=== PATIENT | male | born 1975 | race Caucasian/White ===

== ENCOUNTER 2017-07-14 11:18 | Inpatient (IN) ==
[2017-07-14] MEDS ORDERED: ONDANSETRON 4 MG/2 ML VIAL IV PRN (12:07)
[2017-07-14] MEDS ORDERED: ACETAMINOPHEN 325 MG TABLET PO PRN (12:07)
[2017-07-14] MEDS ORDERED: NICOTINE 21 MG PATCH TOPICAL ONE (12:36)
[2017-07-14] MEDS: 0.9 % SODIUM CHLORIDE 10 ML SYRINGE IV SCH ×2 (12:44→22:52)
--- NOTE | 2017-07-14 12:55 | Nephrology Consult Note ---
History of Present Illness - Reason for Consult Patient information: Note initiated : 07/14/17 at 12:52 pm Patient: Constantine Rivera 42 y/o M admitted on 07/14/17 for Accute Kidney Injury- Hyperkalemia. Chief Complaint: Abnormal labs (high potassium). Consult date: 07/14/17 acute renal failure, chronic renal failure, hyperkalemia, metabolic acidosis Requesting physician: Darin Olson - Chief Complaint High potassium - History of Present Illness Constantine Rivera is a [id number] male with chronic kidney disease stage 3, persistent non-nephrotic range proteinuria, benign prostatic hyperplasia, bilateral hydronephrosis, left ureteral reflux s/p cystoscopy, voiding cystourethrogram, bilateral stent placement and transurethral incision of the prostate on 01/27/17 and cystoscopy and bilateral stent removal on 06/10/17, history of metabolic acidosis and hyperkalemia, history of hyperuricemia and gout, vitamin D deficiency, secondary hyperparathyroidism, chronic anemia due to renal failure, [facility] up and referred to [facility] for direct admission for management of acute kidney injury with hyperkalemia and metabolic acidosis. Labs on 07/14/17: Serum creatinine 4.4, CKD-EPI GFR 16 ml/min, K 6.1, CO2 16, calcium 8.9. Labs on 07/13/17: Serum creatinine 4.1, CKD-EPI GFR 16 ml/min, K 5.6, CO2 21, calcium 9.1. Labs on 06/10/17: Urinalysis yellow, cloudy, pH 6.5, SG <1.005, protein low, occult blood large, random urine protein/creatinine ratio 300 mg/g creatinine. Labs on 03/10/17: Serum creatinine 2.3, CKD-EPI GFR 32 ml/min, K 4.9, CO2 24, calcium 9.4. Labs on 01/31/17: Serum creatinine 2.5, CKD-EPI GFR 31 ml/min, Hb 9.5. Labs on 10/17/16: Random urine microalbumin/creatinine ratio 100.4 mg/g creatinine. Renal US (01/08/17): Severe hydronephrosis bilaterally. Atrophic renal cortex bilaterally. Thickened bladder wall with trabeculation. Serum creatinine was 2.0-3.1 in 2017. He does not use NSAIDs. He takes Sodium Bicarbonate 650 mg twice daily, Flomax 0.4 mg daily among other medications. He has no edema. He does not have urinary symptoms. Review of Systems Constitutional: weakness, no headache(s) Nose, mouth and throat: no epistaxis, no nasal congestion Cardiovascular: no chest pain, no palpatations Respiratory: no cough, no dyspnea Gastrointestinal: no abdominal pain, no nausea Genitourinary: no dysuria, no hematuria Musculoskeletal: no back pain, no neck pain Integumentary: no lesions, no pruritus Neurological: no focal weakness, no syncope Psychiatric: anxiety, no depression Endocrine: no cold intolerance, no heat intolerance Hematologic/Lymphatic: no easy bleeding, no easy bruising Allergic/Immunologic: no tongue swelling, no uticaria Past History Past medical history: Medical History (Last Reviewed 07/14/17 @ 10:10 by Ellyn Houston RN) Acute kidney injury (Acute) Anemia in stage 3 chronic kidney disease (Chronic) Vitamin D deficiency (Chronic) Secondary hyperparathyroidism of renal origin (Chronic) Persistent proteinuria (Chronic) Hyperkalemia, diminished renal excretion (Resolved) Psychiatric illness (Chronic) Kidney disease (Chronic) Chronic obstructive lung disease (Chronic) Chronic kidney disease, stage 3 (Chronic) Chronic anxiety (Chronic) Depressive disorder (Chronic) Bipolar disorder (Chronic) Congenital stricture of urethra (Chronic) Past surgical history: Past Surgical History (Last Reviewed 07/14/17 @ 10:10 by Ellyn Houston RN) No pertinent past surgical history (Chronic) Past family history: Family History (Last Reviewed 07/14/17 @ 10:10 by Ellyn Houston RN) Other No pertinent family history Past social history: Lives in an assisted living facility. Smokes cigarettes. Medications and Allergies Home Medications Medication Instructions Recorded Confirmed Type citalopram 40 mg tablet 40 mg PO QDAY 10/13/16 07/14/17 History lorazepam 2 mg tablet 1 mg PO BID 10/13/16 07/14/17 History salmeterol 50 mcg/dose blister 1 inh INHALATION BID 10/13/16 07/14/17 History powder for inhalation albuterol sulfate HFA 90 2 puff INHALATION BID g 10/14/16 07/14/17 History mcg/actuation aerosol inhaler olanzapine 10 mg tablet See Label Instructions .ROUTE 10/14/16 07/14/17 History .COMPLEX gabapentin 100 mg capsule 100 mg PO BID@08,1200 01/12/17 07/14/17 History tamsulosin 0.4 mg capsule 0.4 mg PO QDAY 03/16/17 07/14/17 History risperidone 0.5 mg tablet 0.5 mg PO BID tab 06/10/17 07/14/17 History Gabapentin [Neurontin] 200 mg PO HS 07/14/17 07/14/17 History Vitamin D3 1,000 unit PO DAILY 07/14/17 07/14/17 History ciprofloxacin 500 mg tablet 500 mg PO BID tab 07/14/17 07/14/17 History Allergies Allergy/AdvReac Type Severity Reaction Status Date / Time No Known Drug Allergies Allergy Verified 07/14/17 10:43 Exam - Vital Signs Vital signs: Temp Pulse Resp BP Pulse Ox 98.5 F 80 16 127/79 97 07/14/17 11:51 07/14/17 11:51 07/14/17 11:51 07/14/17 11:51 07/14/17 11:51 - General Appearance General appearance: appears started age EENT: mucous membranes moist Neck: supple Respiratory: clear Cardiology: normal S1, normal S2 Gastrointestinal: no tenderness Integumentary: no rash, warm and dry Neurologic: no focal deficit, alert and oriented x3 Musculoskeletal: no erythema, no cyanosis Psychiatric: mood/affect appropriate, cooperative Assessment and Plan (1) Acute kidney injury Associated with obstructive nephropathy with bilateral hydronephrosis. Dr Schmitt planning bilateral ureteral stents on 07/16/16. Status: Acute Priority: High (2) Hyperkalemia, diminished renal excretion Associated with acute kidney injury and metabolic acidosis. Sodium bicarbonate 1300 mg PO TID and Calcium carbonate 1500 mg PO TID ordered. Anticipate improvement with correction of metabolic acidosis and low potassium diet. Repeat labs in am. Status: Acute Priority: High (3) Metabolic acidosis Associated with acute kidney injury. Sodium bicarbonate 1300 mg PO TID and Calcium carbonate 1500 mg PO TID ordered. Repeat labs in am. Status: Acute Priority: High (4) Hydronephrosis, bilateral Dr Schmitt planning bilateral ureteral stents on 07/16/16. Status: Acute Priority: High
[2017-07-14] MEDS ORDERED: SODIUM POLYSTYRENE SULFONATE 15 GM/60 ML SUSPENSION PO ONE (14:43)
[2017-07-14] MEDS: SODIUM BICARBONATE 650 MG TABLET PO SCH ×2 (14:56→20:56)
--- NOTE | 2017-07-14 15:45 | History and Physical Report ---
DATE OF ADMISSION: 07/14/2017 REASON FOR ADMISSION: Hyperkalemia, acute renal failure. 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 His creatinine went up from 4.1 to 4.4 today, along with potassium from 5.6 to 6.1 with significant metabolic acidosis. Hospitalist Service was subsequently consulted to admit the patient while Nephrology will manage acute renal failure. The patient carries a history of obstructive uropathy status post stenting by Dr. Schmitt on 02/10 and subsequently stent removal on 05/29. The patient has been following up with nephrology clinic and was found to have the above labs today and subsequent reason for admission. At the time of evaluation, the patient is alert and oriented. He denies any active distress. He denies abdominal pain. He does complain of right ankle pain but denies any swelling, redness, fever, shaking chills, headache, photophobia, myalgias, nausea, vomiting, weight loss or glandular swelling. He further denies NSAID intake or changes in medications. REVIEW OF SYSTEMS: A ten-point review of system was performed and negative except the ones discussed above. PAST MEDICAL HISTORY: 1. Bilateral hydronephrosis. 2. Benign prostate hypertrophy. 3. Chronic kidney disease. 4. Secondary hyperparathyroidism. 5. COPD. 6. Depressive disorder. 7. Bipolar disorder. 8. Nicotine dependence. CURRENT MEDICATIONS: 1. Citalopram 40 mg. 2. Lorazepam 1 mg b.i.d. 3. Salmeterol inhaled b.i.d. 4. Albuterol inhaled q.6. 5. Olanzapine 10 mg. 6. Gabapentin 100 mg b.i.d. 7. Tamsulosin 0.4 mg daily. 8. Risperidone 0.5 mg b.i.d. 9. Gabapentin 200 mg at bedtime. 10. Vitamin D 1000 units daily 11. Ciprofloxacin 500 mg b.i.d. ALLERGIES: None significant. SOCIAL HISTORY: The patient lives in assisted living. He smokes over a pack and a half a day. FAMILY HISTORY: None obtained from medical record. PHYSICAL EXAMINATION: GENERAL: The patient is alert and oriented. He denies any active distress. VITAL SIGNS: Blood pressure is 127/79, respiratory rate 16, temperature 98.5, pulse 80, sats 97% on room air. HEENT: Pupils symmetric. Oral cavity is dry. No ear or nose discharge. Head is normocephalic and atraumatic. NECK: No lymphadenopathy. HEART: S1, S2, regular rhythm. No murmur. CHEST: Clear to auscultation. ABDOMEN: Soft and nontender. LOWER EXTREMITIES: No cyanosis or clubbing. No joint swelling. SKIN: No suspicious lesions. PSYCHIATRIC: Alert and cooperative. No anxiety. NEURO: Nonfocal, moving all four extremities. LABS AND IMAGING: White count reviewed from nephrology clinic. Creatinine 4.4, potassium 6.1, bicarbonate 16, calcium 8.9. ASSESSMENT AND PLAN: A 42-year-old with acute renal failure and hyperkalemia. 1. Acute renal failure. Will be managed by Nephrology. 2. Hyperkalemia. Will be managed by Nephrology. 3. History of obstructive uropathy. Nephrology will consult Urology for likely stent placement. Other prior medical issues will be addressed by Hospitalist Service and include: a. History of bipolar disorder. Continue risperidone/olanzapine/citalopram. b. History of anxiety disorder. Continue lorazepam/citalopram. c. Neuropathy. Continue gabapentin. d. Reactive airway disease. Continue bronchodilators. e. BPH. Continue tamsulosin. 5. FULL CODE. 6. Prophylaxis on heparin. PLAN FOR TODAY: 1. Admit as inpatient in light of renal failure, hyperkalemia, 2. Renal issues managed by Nephrology/Urology. 3. Preexisting medical condition management as above. AA:sid Job ID: [id number] Doc ID: [id number] [facility]in [facility]
[2017-07-14] MEDS: CALCIUM CARBONATE 500 MG TAB.CHEW CHEWED SCH (17:42)
[2017-07-14] MEDS: DOCUSATE SODIUM 100 MG CAPSULE PO SCH (20:55)
[2017-07-14] MEDS: risperiDONE 0.25 MG TABLET PO SCH (20:57)
[2017-07-14] MEDS: LORazepam 1 MG TABLET PO SCH (20:57)
[2017-07-14] MEDS: HEPARIN 5,000 UNIT/ML VIAL SQ SCH (20:58)
[2017-07-14] MEDS ORDERED: SENNOSIDES/DOCUSATE SODIUM 1 TAB TABLET PO SCH (21:00)
[2017-07-14] MEDS ORDERED: OLANZapine 5 MG TABLET PO SCH (21:00)
[2017-07-14] MEDS: SALMETEROL XINAFOATE 1 PUFF INHALER INH SCH (21:16)
[2017-07-15 05:07] LABS: Mean Cell Volume 83.3 fL (80.0-100.0); Mean Corpuscular HGB Conc 33.3 g/dL (31.0-36.0); Mean Corpuscular Hemoglobin 27.8 pg (26.0-34.0); Platelet Count 226 K/mcL (140-440); RBC 3.49 M/mcL (4.50-5.90); Red Cell Distribution Width 15.4 % (11.5-14.5)
[2017-07-15 05:08] LABS: ALT/SGPT 10 U/l (0-40); Albumin 3.6 gm/dL (3.2-5.2); Albumin/Globulin Ratio 1.2 (1.0-2.3); Alkaline Phosphatase 140 U/L (39-117); Bilirubin,Direct < 0.2 mg/dL (0.0-0.3); Blood Urea Nitrogen 59 mg/dl (6-20); Gamma Glutamyl Transpeptidase 14 U/L (8-61); Uric Acid 8.7 mg/dL (2.5-8.0)
[2017-07-15] MEDS: 0.9 % SODIUM CHLORIDE 10 ML SYRINGE IV SCH ×3 (05:49→23:00)
--- NOTE | 2017-07-15 06:34 | Nephrology Progress Note ---
Subjective Patient information: Note initiated : 07/15/17 at 6:32 am Constantine Rivera is a [id number] male with chronic kidney disease stage 3, persistent non-nephrotic range proteinuria, benign prostatic hyperplasia, bilateral hydronephrosis, left ureteral reflux s/p cystoscopy, voiding cystourethrogram, bilateral stent placement and transurethral incision of the prostate on 01/27/17 and cystoscopy and bilateral stent removal on 06/10/17, history of metabolic acidosis and hyperkalemia, history of hyperuricemia and gout, vitamin D deficiency, secondary hyperparathyroidism, chronic anemia due to renal failure, presented [facility] for follow up on and referred to [facility] for direct admission for management of acute kidney injury with hyperkalemia and metabolic acidosis. Chief Complaint: Weakness. Principal diagnosis: Acute kidney injury with hyperkalemia and metabolic acidosis Interval history: Hyperkalemia resolved. Metabolic acidosis improved. Pertinent ROS: No symptoms. No chest pain. No shortness of breath. Objective - Vital Signs Vital signs: Vital Signs Temp Pulse Resp BP Pulse Ox 07/15/17 03:13 98.3 F 68 16 141/84 99 07/14/17 23:57 98.4 F 70 16 136/82 97 07/14/17 20:00 98.2 F 85 18 132/81 100 07/14/17 16:00 98.5 F 75 18 128/79 99 07/14/17 11:51 98.5 F 80 16 127/79 97 07/14/17 11:28 96 Intake and Output 07/14/17 07/15/17 07/15/17 21:59 05:59 13:59 Intake Total 2750 / 2750 1900 / 1900 Output Total 400 / 400 Balance 2350 / 2350 1900 / 1900 Intake: Oral 2750 / 2750 1900 / 1900 Output: Void Amount 400 / 400 Other: Meal Lunch sherbert Percent of Meal Consumed 100% Feeding Ability Independent # Voids 1 1 # Bowel Movements 1 Weight 168 lb 8 oz Intake & Output: Intake & Output 07/14/17 07/15/17 07/15/17 21:59 05:59 13:59 Intake Total 2750 / 2750 1900 / 1900 Output Total 400 / 400 Balance 2350 / 2350 1900 / 1900 Weight 168 lb 8 oz Intake: Oral 2750 / 2750 1900 / 1900 Output: Void Amount 400 / 400 Other: Meal Lunch bin Percent of Meal Consumed 100% Feeding Ability Independent # Voids 1 1 # Bowel Movements 1 - General Appearance General appearance: appears started age EENT: mucous membranes moist Neck: supple Respiratory: clear Cardiology: normal S1, normal S2 Gastrointestinal: no tenderness Integumentary: warm and dry Neurologic: no focal deficit Musculoskeletal: no erythema, no cyanosis Psychiatric: mood/affect appropriate, cooperative - Lab 07/15/17 03:30 07/15/17 03:30 Most recent lab results Calcium 8.5 mg/dl (8.6-10.4) L 07/15/17 03:30 Phosphorus 4.2 mg/dL (2.7-4.5) 07/15/17 03:30 Magnesium 1.4 mg/dL (1.6-2.5) L 07/15/17 03:30 Assessment and Plan (1) Acute kidney injury Associated with obstructive nephropathy with bilateral hydronephrosis. Dr Schmitt planning bilateral ureteral stents on 07/16/16. Status: Acute Priority: High (2) Hyperkalemia, diminished renal excretion Status: Acute Priority: High Associated with acute kidney injury and metabolic acidosis. Resolved after Kayexalate 30 g PO x 1, Sodium bicarbonate 1300 mg PO TID and Calcium carbonate 1500 mg PO TID. Status: Resolved Priority: High (3) Metabolic acidosis Improved with Sodium bicarbonate 1300 mg PO TID and Calcium carbonate 1500 mg PO TID. Status: Acute Priority: Medium (4) Hypomagnesemia Magnesium Oxide 400 mg PO BID started. Status: Acute Priority: Medium (5) Hydronephrosis, bilateral Dr Schmitt planning bilateral ureteral stents on 07/16/16. Status: Acute Priority: High
[2017-07-15 06:36] LABS: Anisocytosis 1+ (NONE SEEN); Eosinophils % (Manual) 4 % (0-7); Lymphocytes % 18 % (15-49); Monocytes % (Manual) 14 % (1-12); Ovalocytes FEW (NONE SEEN); Platelet Estimate NORMAL (NORMAL); RBC Morphology ABNORM (NORMAL); Segmented Neutrophils % 64 % (38-78)
[2017-07-15] MEDS ORDERED: MAGNESIUM OXIDE 400 MG TABLET PO SCH ×2 (09:00→21:00)
[2017-07-15] MEDS ORDERED: OLANZapine 5 MG TABLET PO SCH (09:00)
[2017-07-15] MEDS ORDERED: CITALOPRAM 20 MG TABLET PO SCH (09:00)
[2017-07-15] MEDS ORDERED: TAMSULOSIN 0.4 MG CAPSULE PO SCH (09:00)
[2017-07-15] MEDS: DOCUSATE SODIUM 100 MG CAPSULE PO SCH ×2 (09:13→21:42)
[2017-07-15] MEDS: LORazepam 1 MG TABLET PO SCH ×2 (09:13→21:42)
[2017-07-15] MEDS: risperiDONE 0.25 MG TABLET PO SCH ×2 (09:14→21:42)
[2017-07-15] MEDS: CALCIUM CARBONATE 500 MG TAB.CHEW CHEWED SCH ×3 (09:14→17:56)
[2017-07-15] MEDS: SODIUM BICARBONATE 650 MG TABLET PO SCH ×3 (09:14→21:42)
[2017-07-15] MEDS: HEPARIN 5,000 UNIT/ML VIAL SQ SCH ×2 (09:14→21:43)
[2017-07-15] MEDS: SALMETEROL XINAFOATE 1 PUFF INHALER INH SCH ×2 (09:16→21:46)
--- NOTE | 2017-07-15 09:58 | Internal Med Progress Note ---
Medical - PN: Subj Patient information: Note initiated : 07/15/17 at 9:56 am Service Date, if different from initiated Date: [] Patient: Constantine Rivera 42 y/o M admitted on 07/14/17 for Acute Kidney Injury- Hyperkalemia. Chief Complaint: [] Interval history: July 14- patient admitted with acute renal failure/hyperkalemia the setting of bilateral hydronephrosis. 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 His creatinine went up from 4.1 to 4.4 today, along with potassium from 5.6 to 6.1 with significant metabolic acidosis. Hospitalist Service was subsequently consulted to admit the patient while Nephrology will manage acute renal failure. The patient carries a history of obstructive uropathy status post stenting by Dr. Schmitt on 02/10 and subsequently stent removal on 05/29. The patient has been following up with nephrology clinic and was found to have the above labs today and subsequent reason for admission. July 15- patient doing well. No overnight events. Due for renal stent placement by urology 07/16. Prior medical conditions stable and at baseline on home medications. No further recommendations from hospitalist service. Currently managed per nephrology/urology - Constitutional Vitals: Vital Signs Temp Pulse Resp BP Pulse Ox 97.2 F 72 16 139/81 97 07/15/17 08:20 07/15/17 08:25 07/15/17 08:25 07/15/17 08:20 07/15/17 08:25 Period Temp Pulse Resp BP Sys/Foster Pulse Ox Last 24 Hr 97.2 F-98.5 F 68-85 16-18 127-141/79-84 96-100 Intake and Output 07/14/17 07/15/17 07/15/17 21:59 05:59 13:59 Intake Total 2750 / 2750 1900 / 1900 400 / 400 Output Total 400 / 400 Balance 2350 / 2350 1900 / 1900 400 / 400 Weight 168 lb 8 oz Intake & Output: Intake & Output 07/14/17 07/15/17 07/15/17 21:59 05:59 13:59 Intake Total 2750 / 2750 1900 / 1900 400 / 400 Output Total 400 / 400 Balance 2350 / 2350 1900 / 1900 400 / 400 Weight 168 lb 8 oz Intake: Oral 2750 / 2750 1900 / 1900 400 / 400 Output: Void Amount 400 / 400 Other: Meal Lunch sherbert Breakfast Percent of Meal Consumed 100% 100% Feeding Ability Independent Independent # Voids 1 1 # Bowel Movements 1 General appearance: average body habitus, no acute distress Exam: flat affect alert oriented Nonlabored breathing No anxiety Medical - PN: Obj Da - Labs CBC & Chem 7: 07/15/17 03:30 07/15/17 03:30 Labs: Abnormal Lab Results 07/15/17 07/15/17 03:30 03:30 RBC 3.49 L Hgb 9.7 L Hct 29.1 L RDW 15.4 H Monocytes % (Manual) 14 H RBC Morphology Abnorm A Anisocytosis 1+ A Ovalocytes Few A Carbon Dioxide 20 L BUN 59 H Creatinine 4.3 H Glucose 109 H Uric Acid 8.7 H Calcium 8.5 L Magnesium 1.4 L Alkaline Phosphatase 140 H Triglycerides 155 H Meds: Medications Acetaminophen (Tylenol) 650 mg PO Q4-6HP PRN PRN Reason: PAIN/FEVER > 101 Calcium Carbonate/Glycine (Tums) 1,500 mg CHEWED TIDCC [facility] Last Admin: 07/15/17 09:14 Dose: 1,500 mg Citalopram Hydrobromide (Celexa) 40 mg PO DAILY [facility] Last Admin: 07/15/17 09:14 Dose: 40 mg Docusate Sodium (Colace) 100 mg PO BID [facility] Last Admin: 07/15/17 09:13 Dose: 100 mg Heparin Sodium (Porcine) (Heparin) 5,000 unit SQ Q12 [facility] Last Admin: 07/15/17 09:14 Dose: 5,000 unit Lorazepam (Ativan) 1 mg PO BID [facility] Last Admin: 07/15/17 09:13 Dose: 1 mg Magnesium Oxide (Magnesium Oxide) 400 mg PO BID [facility] Last Admin: 07/15/17 09:13 Dose: 400 mg Nicotine (Nicoderm) 21 mg TOPICAL DAILY@1000 [facility] Olanzapine (Zyprexa) 20 mg PO DAILY [facility] Last Admin: 07/15/17 09:14 Dose: 20 mg Olanzapine (Zyprexa) 10 mg PO HS [facility] Last Admin: 07/14/17 20:56 Dose: 10 mg Ondansetron HCl (Zofran) 4 mg IV Q4-6HP PRN PRN Reason: Nausea And Vomiting Risperidone (Risperdal) 0.5 mg PO BID [facility] Last Admin: 07/15/17 09:14 Dose: 0.5 mg Salmeterol Xinafoate (Serevent) 1 puff INH BID [facility] Last Admin: 07/15/17 09:16 Dose: Not Given Senna/Docusate Sodium (Senna Plus Tablet) 1 tab PO HS [facility] Last Admin: 07/14/17 20:57 Dose: 1 tab Sodium Bicarbonate (Sodium Bicarbonate) 1,300 mg PO TID [facility] Last Admin: 07/15/17 09:14 Dose: 1,300 mg Sodium Chloride (Saline Flush) 10 ml IV Q8 [facility] Last Admin: 07/15/17 05:49 Dose: 10 ml Tamsulosin HCl (Flomax) 0.4 mg PO QDAY [facility] Last Admin: 07/15/17 09:14 Dose: 0.4 mg Medical - PN: A/P - Time Spent With Patient Total time spent is greater than 50% in coordination of care (as documented) at patient's floor/unit and/or counseling patient: 15 - 24 minutes (1) Acute kidney injury Status: Acute Assessment and plan: Assessment * acute renal failure management nephrology * Hyperkalemia managed by nephrology. Status post Kayexalate. * Obstructive uropathy-due for stenting by urology on 07/16 Medical issues managed by hospitalist service * anxiety disorder continue lorazepam/citalopram * history of tobacco dependence on nicotine patch * History of bipolar disorder on olanzapine/risperidone * Neuropathy continue on gabapentin * History of reactive airway disease on bronchodilators * BPH on tamsulosin * Prophylaxis heparin * Full code Plan As above Current Visit: No Medical - PN: Qual - Stroke Symptom Onset Unknown: No - VTE Deep Vein Thrombosis/Pulmonary Embolism Present on Admission: No
[2017-07-15] MEDS ORDERED: NICOTINE 21 MG PATCH TOPICAL SCH (10:00)
[2017-07-15] MEDS ORDERED: ACETAMINOPHEN 325 MG TABLET PO PRN (10:36)
[2017-07-15] MEDS ORDERED: ONDANSETRON 4 MG/2 ML VIAL IV PRN (10:36)
[2017-07-15] MEDS: NICOTINE 21 MG PATCH TOPICAL SCH (12:22)
[2017-07-15] MEDS: SENNOSIDES/DOCUSATE SODIUM 1 TAB TABLET PO SCH (21:46)
[2017-07-15] MEDS: OLANZapine 5 MG TABLET PO SCH (21:46)
[2017-07-16 05:28] LABS: Mean Cell Volume 83.6 fL (80.0-100.0); Mean Corpuscular Hemoglobin 27.6 pg (26.0-34.0); Platelet Count 246 K/mcL (140-440); RBC 3.86 M/mcL (4.50-5.90); Red Cell Distribution Width 15.4 % (11.5-14.5)
[2017-07-16] MEDS: 0.9 % SODIUM CHLORIDE 10 ML SYRINGE IV SCH ×3 (05:57→22:04)
[2017-07-16 06:12] LABS: ALT/SGPT 10 U/l (0-40); Albumin 3.7 gm/dL (3.2-5.2); Albumin/Globulin Ratio 1.2 (1.0-2.3); Alkaline Phosphatase 143 U/L (39-117); Bilirubin,Direct < 0.2 mg/dL (0.0-0.3); Blood Urea Nitrogen 55 mg/dl (6-20); Gamma Glutamyl Transpeptidase 16 U/L (8-61); Uric Acid 8.3 mg/dL (2.5-8.0)
[2017-07-16] MEDS ORDERED: SODIUM BICARBONATE ADULT 50 MEQ/50 ML SYRINGE IV SCH (07:15)
--- NOTE | 2017-07-16 07:20 | Nephrology Progress Note ---
Subjective Patient information: Note initiated : 07/16/17 at 7:18 am Constantine Rivera is a [id number] male with chronic kidney disease stage 3, persistent non-nephrotic range proteinuria, benign prostatic hyperplasia, bilateral hydronephrosis, left ureteral reflux s/p cystoscopy, voiding cystourethrogram, bilateral stent placement and transurethral incision of the prostate on 01/27/17 and cystoscopy and bilateral stent removal on 06/10/17, history of metabolic acidosis and hyperkalemia, history of hyperuricemia and gout, vitamin D deficiency, secondary hyperparathyroidism, chronic anemia due to renal failure, [facility] for follow up on [facility] for management of acute kidney injury with hyperkalemia and metabolic acidosis. Chief Complaint: Weakness. Principal diagnosis: Acute kidney injury with hyperkalemia and metabolic acidosis Interval history: NPO, waiting for cystoscopy. Pertinent ROS: No shortness of breath, edema or anorexia. Objective - Vital Signs Vital signs: Vital Signs Temp Pulse Pulse Resp BP BP BP 07/16/17 06:53 76 16 07/16/17 04:00 98.7 F 79 14 123/76 07/16/17 00:00 97.4 F 62 16 133/92 07/15/17 20:00 98.1 F 74 16 131/85 07/15/17 15:43 99.5 F H 14 133/65 07/15/17 12:26 68 07/15/17 12:00 69 14 07/15/17 11:23 98.1 F 16 110/51 07/15/17 10:47 69 07/15/17 08:25 72 16 07/15/17 08:20 97.2 F 72 16 139/81 07/15/17 07:47 77 Pulse Ox 07/16/17 06:53 97 07/16/17 04:00 98 07/16/17 00:00 100 07/15/17 20:00 99 07/15/17 15:43 97 07/15/17 12:26 07/15/17 12:00 95 07/15/17 11:23 91 07/15/17 10:47 07/15/17 08:25 97 07/15/17 08:20 97 07/15/17 07:47 Intake and Output 03/07/16/17 07/16/17 21:59 05:59 13:59 Intake Total 1680 / 1680 1680 / 1680 Output Total Balance 1679 / 1679 1680 / 1680 Intake: Oral 1680 / 1680 1680 / 1680 Output: # of times incontinent of urine Other: Meal Dinner Percent of Meal Consumed 100% # Voids 0 1 # Bowel Movements 1 # of times incontinent of 1 Bowels Weight 171 lb Intake & Output: Intake & Output 07/15/17 07/16/17 07/16/17 21:59 05:59 13:59 Intake Total 1680 / 1680 1680 / 1680 Output Total Balance 1679 / 1679 1680 / 1680 Weight 171 lb Intake: Oral 1680 / 1680 1680 / 1680 Output: # of times incontinent of urine Other: Meal Dinner Percent of Meal Consumed 100% # Voids 0 1 # Bowel Movements 1 # of times incontinent of 1 Bowels - General Appearance General appearance: appears started age EENT: mucous membranes moist Neck: supple Respiratory: clear Cardiology: no edema Gastrointestinal: no tenderness Integumentary: warm and dry Neurologic: no focal deficit Musculoskeletal: no erythema, no cyanosis Psychiatric: mood/affect appropriate, cooperative - Lab 07/16/17 04:28 07/16/17 04:28 Most recent lab results Calcium 8.9 mg/dl (8.6-10.4) 07/16/17 04:28 Phosphorus 4.4 mg/dL (2.7-4.5) 07/16/17 04:28 Magnesium 1.7 mg/dL (1.6-2.5) 07/16/17 04:28 Assessment and Plan (1) Acute kidney injury Associated with obstructive nephropathy with bilateral hydronephrosis. Dr Schmitt planning bilateral ureteral stents on 07/16/16. Status: Acute Priority: High (2) Hyperkalemia, diminished renal excretion Status: Acute Priority: High Associated with acute kidney injury and metabolic acidosis. NPO for procedure. Sodium Bicarbonate 150 mEq in 1L D5W at 100 ml/hour ordered perioperatively. Status: Acute Priority: High (3) Metabolic acidosis NPO for procedure. Sodium Bicarbonate 150 mEq in 1L D5W at 100 ml/hour ordered. Status: Acute Priority: Medium (4) Hypomagnesemia Resolved with Magnesium Oxide 400 mg PO BID. Status: Resolved Priority: Medium (5) Hydronephrosis, bilateral Dr Schmitt planning bilateral ureteral stents on 07/16/16. Status: Acute Priority: High
[2017-07-16] MEDS ORDERED: SODIUM BICARBONATE VIAL 150 MEQ in DEXTROSE 5% IN WATER 850 ML IV SCH ×3 (08:00→12:30)
[2017-07-16 08:18] LABS: Anisocytosis FEW (NONE SEEN); Eosinophils % (Manual) 1 % (0-7); Lymphocytes % 19 % (15-49); Monocytes % (Manual) 9 % (1-12); Platelet Estimate NORMAL (NORMAL); RBC Morphology ABNORM (NORMAL); Segmented Neutrophils % 71 % (38-78)
[2017-07-16] MEDS: OLANZapine 5 MG TABLET PO SCH ×2 (08:19→22:03)
[2017-07-16] MEDS: CITALOPRAM 20 MG TABLET PO SCH (08:19)
[2017-07-16] MEDS: risperiDONE 0.25 MG TABLET PO SCH ×2 (08:19→22:03)
[2017-07-16] MEDS: LORazepam 1 MG TABLET PO SCH ×2 (08:20→22:03)
[2017-07-16] MEDS: DOCUSATE SODIUM 100 MG CAPSULE PO SCH ×2 (08:21→22:03)
[2017-07-16] MEDS: TAMSULOSIN 0.4 MG CAPSULE PO SCH (08:21)
[2017-07-16] MEDS: HEPARIN 5,000 UNIT/ML VIAL SQ SCH ×2 (08:21→22:03)
[2017-07-16] MEDS: SALMETEROL XINAFOATE 1 PUFF INHALER INH SCH ×2 (08:22→22:04)
--- NOTE | 2017-07-16 11:14 | Internal Med Progress Note ---
Medical - PN: Subj Patient information: Note initiated : 07/16/17 at 11:12 am Service Date, if different from initiated Date: [] Patient: Constantine Rivera 42 y/o M admitted on 07/14/17 for Acute Kidney Injury- Hyperkalemia. Chief Complaint: [] Interval history: July 14- patient admitted with acute renal failure/hyperkalemia the setting of bilateral hydronephrosis. 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 His creatinine went up from 4.1 to 4.4 today, along with potassium from 5.6 to 6.1 with significant metabolic acidosis. Hospitalist Service was subsequently consulted to admit the patient while Nephrology will manage acute renal failure. The patient carries a history of obstructive uropathy status post stenting by Dr. Schmitt on 02/10 and subsequently stent removal on 05/29. The patient has been following up with nephrology clinic and was found to have the above labs today and subsequent reason for admission. July 15- patient doing well. No overnight events. Due for renal stent placement by urology 07/16. Prior medical conditions stable and at baseline on home medications. No further recommendations from hospitalist service. Currently managed per nephrology/urology July 16- patient will undergo ureteral stent placement today. no change in renal function except for hyperkalemia 5.4. Managed by nephrology. No other concerns expressed by nursing staff. No overnight events - Constitutional Vitals: Vital Signs Temp Pulse Resp BP Pulse Ox 97.6 F 76 16 123/77 97 07/16/17 07:39 07/16/17 06:53 07/16/17 07:39 07/16/17 07:39 07/16/17 07:39 Period Temp Pulse Resp BP Sys/Foster Pulse Ox Last 24 Hr 97.4 F-99.5 F 62-79 14-16 110-133/51-92 91-100 Intake and Output 07/15/17 07/16/17 07/16/17 21:59 05:59 13:59 Intake Total 1680 / 1680 1680 / 1680 Output Total 301 / 301 Balance 1679 / 1679 1680 / 1680 -301 / -301 Weight 171 lb Intake & Output: Intake & Output 07/15/17 07/16/1707/16/18 21:59 05:59 13:59 Intake Total 1680 / 1680 1680 / 1680 Output Total 301 / 301 Balance 1679 / 1679 1680 / 1680 -301 / -301 Weight 171 lb Intake: Oral 1680 / 1680 1680 / 1680 Output: Void Amount 300 / 300 # of times incontinent of urine Other: Meal Dinner Percent of Meal Consumed 100% # Voids 0 1 # Bowel Movements 1 # of times incontinent of 1 Bowels General appearance: cooperative, no acute distress Exam: Non Labored breathing lert oriented no anxiety Medical - PN: Obj Da - Labs CBC & Chem 7: 07/16/17 04:28 07/16/17 04:28 Labs: Abnormal Lab Results 07/16/17 07/16/17 07/15/17 04:28 04:28 03:30 WBC 11.9 H RBC 3.86 L Hgb 10.6 L Hct 32.3 L RDW 15.4 H Monocytes % (Manual) RBC Morphology Abnorm A Anisocytosis Few A Ovalocytes Potassium 5.4 H Carbon Dioxide 19 L 20 L BUN 55 H 59 H Creatinine 4.3 H 4.3 H Glucose 109 H Uric Acid 8.3 H 8.7 H Calcium 8.5 L Magnesium 1.4 L Alkaline Phosphatase 143 H 140 H Triglycerides 155 H 07/15/17 03:30 WBC RBC 3.49 L Hgb 9.7 L Hct 29.1 L RDW 15.4 H Monocytes % (Manual) 14 H RBC Morphology Abnorm A Anisocytosis 1+ A Ovalocytes Few A Potassium Carbon Dioxide BUN Creatinine Glucose Uric Acid Calcium Magnesium Alkaline Phosphatase Triglycerides Meds: Medications Acetaminophen (Tylenol) 650 mg PO Q4-6HP PRN PRN Reason: PAIN/FEVER > 101 Citalopram Hydrobromide (Celexa) 40 mg PO DAILY [facility] Last Admin: 07/16/17 08:19 Dose: 40 mg Docusate Sodium (Colace) 100 mg PO BID [facility] Last Admin: 07/16/17 08:21 Dose: Not Given Heparin Sodium (Porcine) (Heparin) 5,000 unit SQ Q12 [facility] Last Admin: 07/16/17 08:21 Dose: Not Given Sodium Bicarbonate 150 meq/ (Dextrose) 1,000 mls @ 10 mls/hr IV Q20H [facility] Stop: 07/17/17 07:59 Last Admin: 07/16/17 08:20 Dose: 10 mls/hr Lorazepam (Ativan) 1 mg PO BID [facility] Last Admin: 07/16/17 08:20 Dose: 1 mg Nicotine (Nicoderm) 21 mg TOPICAL DAILY@1000 [facility] Last Admin: 07/15/17 12:22 Dose: 21 mg Olanzapine (Zyprexa) 20 mg PO DAILY [facility] Last Admin: 07/16/17 08:19 Dose: 20 mg Olanzapine (Zyprexa) 10 mg PO HS [facility] Last Admin: 07/15/17 21:46 Dose: 10 mg Ondansetron HCl (Zofran) 4 mg IV Q4-6HP PRN PRN Reason: Nausea And Vomiting Risperidone (Risperdal) 0.5 mg PO BID [facility] Last Admin: 07/16/17 08:19 Dose: 0.5 mg Salmeterol Xinafoate (Serevent) 1 puff INH BID [facility] Last Admin: 07/16/17 08:22 Dose: Not Given Senna/Docusate Sodium (Senna Plus Tablet) 1 tab PO [facility] Last Admin: 07/15/17 21:46 Dose: 1 tab Sodium Chloride (Saline Flush) 10 ml IV Q8 [facility] Last Admin: 07/16/17 05:57 Dose: 10 ml Tamsulosin HCl (Flomax) 0.4 mg PO QDAY [facility] Last Admin: 07/16/17 08:21 Dose: Not Given Medical - PN: A/P - Time Spent With Patient Total time spent is greater than 50% in coordination of care (as documented) at patient's floor/unit and/or counseling patient: 15 - 24 minutes (1) Acute kidney injury Status: Acute Assessment and plan: Assessment * acute renal failure management nephrology * Hyperkalemia managed by nephrology. * Obstructive uropathy-due for stenting by urology today Medical issues managed by hospitalist service * anxiety disorder continue lorazepam/citalopram * history of tobacco dependence on nicotine patch * History of bipolar disorder on olanzapine/risperidone * Neuropathy continue on gabapentin * History of reactive airway disease on bronchodilators * BPH on tamsulosin * Prophylaxis heparin * Full code Plan * continue medical management as above. * no further recommendations from hospitalist service Current Visit: No Medical - PN: Qual - Stroke Symptom Onset Unknown: No - VTE Deep Vein Thrombosis/Pulmonary Embolism Present on Admission: No
[2017-07-16] MEDS: NICOTINE 21 MG PATCH TOPICAL SCH (11:35)
[2017-07-16] MEDS ORDERED: ceFAZolin 1 GM VIAL IV ONE (12:43)
[2017-07-16] MEDS ORDERED: ceFAZolin 1 GM VIAL ONE (12:47)
[2017-07-16] MEDS ORDERED: KETAMINE 100 MG/ML ML IV ONE (13:05)
[2017-07-16] MEDS ORDERED: GLYCOPYRROLATE 0.2 MG/ML VIAL IV ONE (13:05)
[2017-07-16] MEDS ORDERED: DEXAMETHASONE 10 MG/ML VIAL IV ONE (13:05)
[2017-07-16] MEDS ORDERED: fentaNYL 100 MCG/2 ML VIAL IV ONE (13:05)
[2017-07-16] MEDS ORDERED: LIDOCAINE HCL/PF 100 MG/5 ML SYRINGE IV ONE (13:05)
[2017-07-16] MEDS ORDERED: PROPOFOL 200 MG/20 ML VIAL IV ONE (13:05)
[2017-07-16] MEDS ORDERED: MIDAZOLAM 2 MG/2 ML VIAL IV ONE (13:05)
[2017-07-16] MEDS ORDERED: ONDANSETRON 4 MG/2 ML VIAL IV PRN (13:25)
[2017-07-16] MEDS ORDERED: MEPERIDINE 25 MG/ML SYRINGE IV PRN (13:25)
[2017-07-16] MEDS ORDERED: IPRATROPIUM/ALBUTEROL 3 ML AMPUL.NEB NEB PRN (13:25)
--- NOTE | 2017-07-16 13:27 | Brief Operative Note ---
Date of procedure: 07/16/17 Pre-op diagnosis: melecio hydronephrosis Post-op diagnosis: same Procedure: bilateral stents Grafts/Implants: Yes (stents) Anesthesia: GLMA Findings: see note Complications: none Surgeon: Cornelio Schmitt Specimens Removed/Pathology: none sent Condition: stable Disposition: PACU
[2017-07-16] MEDS ORDERED: LACTATED RINGERS 1,000 ML IV SCH (13:30)
--- NOTE | 2017-07-16 14:01 | Operative Note ---
DATE OF OPERATION: 07/16/2017 PREOPERATIVE DIAGNOSIS: Bilateral hydronephrosis. POSTOPERATIVE DIAGNOSIS: Bilateral hydronephrosis. PROCEDURE: Bilateral stent placement. SURGEON: Cornelio Schmitt M.D. INDICATION: The patient is a 42-year-old gentleman who we have seen in the past who developed renal failure secondary to hydronephrosis. He is emptying his bladder and has approximately 268 mL residual. His creatinine was increasing. He previously had stents. We gave him a trial with them being removed and his creatinine worsened. Therefore, he presents for bilateral stent placement. PROCEDURE: The patient was identified and consent was signed. He was given general anesthesia, placed in lithotomy position, prepped and draped in a standard fashion. Cystourethroscopy showed normal-appearing urethra. He did have 4+ trabeculation. The bladder neck was status post TUIP. The orifice on the right was found. A wire was placed and a 6 x 26 stent was placed without difficulty. We then repeated the procedure on the left side. It should be noted this is a laterally placed orifice. Again, both stents showed good curls in the kidney and the bladder. His bladder was drained. He was awoken and taken to the recovery room in stable condition. JanaZ:sid Job ID: [id number] Doc ID: [id number] Cornelio Schmitt MD
[2017-07-16] MEDS ORDERED: ALBUTEROL SULFATE 1 PUFF INHALER INH PRN (14:29)
[2017-07-16] MEDS: SODIUM BICARBONATE VIAL 150 MEQ in DEXTROSE 5% IN WATER 850 ML IV SCH (15:39)
--- NOTE | 2017-07-16 18:11 | XRay Report ---
CLINICAL INFORMATION: Ureteral stent placement. Fluoroscopy utilized TECHNIQUE: 0.2 minutes fluoroscopy utilized by Dr. Schmitt. Spot films were obtained demonstrating a left ureteral stent IMPRESSION: Fluoroscopy utilized for left ureteral stent placement Interpreted and Authenticated by: Hans Hand 07/16/17
[2017-07-16] MEDS: GABAPENTIN 100 MG CAPSULE PO SCH (22:02)
[2017-07-16] MEDS: CIPROFLOXACIN 500 MG TABLET PO SCH (22:03)
[2017-07-16] MEDS: SENNOSIDES/DOCUSATE SODIUM 1 TAB TABLET PO SCH (22:03)
[2017-07-17] MEDS: SODIUM BICARBONATE VIAL 150 MEQ in DEXTROSE 5% IN WATER 850 ML IV SCH (01:20)
[2017-07-17 05:20] LABS: Mean Cell Volume 82.4 fL (80.0-100.0); Mean Corpuscular HGB Conc 33.3 g/dL (31.0-36.0); Mean Corpuscular Hemoglobin 27.4 pg (26.0-34.0); Platelet Count 279 K/mcL (140-440); RBC 4.38 M/mcL (4.50-5.90); Red Cell Distribution Width 14.9 % (11.5-14.5)
[2017-07-17 05:43] LABS: Band Neutrophils % 1 % (0-10); Lymphocytes % 18 % (15-49); Monocytes % (Manual) 9 % (1-12); Platelet Estimate NORMAL (NORMAL); RBC Morphology NORMAL (NORMAL); Segmented Neutrophils % 72 % (38-78)
[2017-07-17 05:46] LABS: ALT/SGPT 9 U/l (0-40); Albumin 4.1 gm/dL (3.2-5.2); Albumin/Globulin Ratio 1.1 (1.0-2.3); Alkaline Phosphatase 159 U/L (39-117); Bilirubin,Direct < 0.2 mg/dL (0.0-0.3); Blood Urea Nitrogen 54 mg/dl (6-20); Gamma Glutamyl Transpeptidase 14 U/L (8-61); Uric Acid 8.1 mg/dL (2.5-8.0)
[2017-07-17] MEDS: 0.9 % SODIUM CHLORIDE 10 ML SYRINGE IV SCH ×3 (06:00→21:45)
--- NOTE | 2017-07-17 06:05 | Nephrology Progress Note ---
Subjective Patient information: Note initiated : 07/17/17 at 6:02 am Constantine Rivera is a [id number] male with chronic kidney disease stage 3, persistent non-nephrotic range proteinuria, benign prostatic hyperplasia, bilateral hydronephrosis, left ureteral reflux s/p cystoscopy, voiding cystourethrogram, bilateral stent placement and transurethral incision of the prostate on 01/27/17 and cystoscopy and bilateral stent removal on 06/10/17, history of metabolic acidosis and hyperkalemia, history of hyperuricemia and gout, vitamin D deficiency, secondary hyperparathyroidism, chronic anemia due to renal failure, [facility] for follow up on and referred to [facility] for direct admission for management of acute kidney injury with hyperkalemia and metabolic acidosis. Chief Complaint: Weakness. Principal diagnosis: Acute kidney injury with hyperkalemia and metabolic acidosis Interval history: Cystoscopy yesterday. Pertinent ROS: No pain. No weakness. No anorexia. Objective - Vital Signs Vital signs: Vital Signs Temp Pulse Pulse Resp BP Pulse Ox 07/17/17 05:00 98.9 F 70 14 130/83 96 07/16/17 23:51 97.6 F 71 14 152/91 98 07/16/17 20:31 97.4 F 81 14 136/87 97 07/16/17 16:35 97.8 F 87 16 135/76 95 07/16/17 14:50 88 17 133/75 96 07/16/17 14:35 89 16 129/72 96 07/16/17 14:20 85 15 130/74 96 07/16/17 14:06 97.2 F 85 16 132/79 94 07/16/17 13:58 98.1 F 86 18 132/80 96 07/16/17 13:53 88 14 128/79 97 07/16/17 13:48 92 H 11 L 133/70 100 07/16/17 13:43 86 86 11 L 130/66 100 07/16/17 13:38 90 11 L 121/66 100 07/16/17 13:33 91 H 12 117/60 100 07/16/17 13:28 97.6 F 90 11 L 117/60 100 07/16/17 12:00 98.3 F 14 112/70 99 07/16/17 07:39 97.6 F 16 123/77 97 07/16/17 06:53 76 16 97 Intake and Output 07/16/17 07/17/17 07/17/17 21:59 05:59 13:59 Intake Total 830 / 830 2645 / 2645 Balance 830 / 830 2645 / 2645 Intake: IV 985 / 985 Sodium Bicarbonate Vial 150 Meq 985 / 985 In Dextrose 5% in Water 850 ml @ 100 mls/hr IV Q10H [facility] Rx#: [id number] Oral 830 / 830 1660 / 1660 Other: Meal Dinner Percent of Meal Consumed 75% Feeding Ability Independent # Voids 2 2 Weight 172 lb 8 oz Intake & Output: Intake & Output 07/16/17 07/17/17 07/17/17 21:59 05:59 13:59 Intake Total 830 / 830 2645 / 2645 Balance 830 / 830 2645 / 2645 Weight 172 lb 8 oz Intake: IV 985 / 985 Sodium Bicarbonate Vial 150 Meq 985 / 985 In Dextrose 5% in Water 850 ml @ 100 mls/hr IV Q10H [facility] Rx#: [id number] Oral 830 / 830 1660 / 1660 Other: Meal Dinner Percent of Meal Consumed 75% Feeding Ability Independent # Voids 2 2 - General Appearance General appearance: appears started age EENT: mucous membranes moist Neck: supple Respiratory: clear Cardiology: normal S1, normal S2 Gastrointestinal: no tenderness Integumentary: warm and dry Neurologic: no focal deficit Musculoskeletal: no erythema, no cyanosis Psychiatric: mood/affect appropriate, cooperative - Lab 07/17/17 04:23 07/17/17 04:23 Most recent lab results Calcium 9.4 mg/dl (8.6-10.4) 07/17/17 04:23 Phosphorus 4.1 mg/dL (2.7-4.5) 07/17/17 04:23 Magnesium 1.7 mg/dL (1.6-2.5) 07/17/17 04:23 - Allied health notes Allied health notes reviewed: nursing Assessment and Plan (1) Acute kidney injury Associated with obstructive nephropathy with bilateral hydronephrosis. Progress: Serum creatinine decreased from 4.3 to 4.0. Plan: OK to discharge from nephrology point. Outpatient follow up scheduled with me on 07/22/17 after labs on 07/21/17. Status: Acute Priority: High (2) Hyperkalemia, diminished renal excretion Status: Acute Priority: High Associated with acute kidney injury and metabolic acidosis. Status: Resolved Priority: High (3) Metabolic acidosis Sodium Bicarbonate 150 mEq in 1L D5W at 100 ml/hour will be changed to Sodium Bicarbonate 650 mg PO TID. Continue Sodium Bicarbonate 650 mg PO TID at discharge. Status: Acute Priority: Medium (4) Hydronephrosis, bilateral Bilateral ureteral stents on 07/16/[address] Schmitt. Status: Acute Priority: High
[2017-07-17] MEDS: PANTOPRAZOLE 40 MG TABLET PO SCH (07:53)
[2017-07-17] MEDS: GABAPENTIN 100 MG CAPSULE PO SCH ×3 (07:53→21:42)
--- NOTE | 2017-07-17 08:02 | Internal Med Progress Note ---
Medical - PN: Subj Patient information: Note initiated : 07/17/17 at 7:58 am Service Date, if different from initiated Date: [] Patient: Constantine Rivera 42 y/o M admitted on 07/14/17 for Acute Kidney Injury- Hyperkalemia. Chief Complaint: [] Interval history: July 14- patient admitted with acute renal failure/hyperkalemia the setting of bilateral hydronephrosis. 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 His creatinine went up from 4.1 to 4.4 today, along with potassium from 5.6 to 6.1 with significant metabolic acidosis. Hospitalist Service was subsequently consulted to admit the patient while Nephrology will manage acute renal failure. The patient carries a history of obstructive uropathy status post stenting by Dr. Schmitt on 02/10 and subsequently stent removal on 05/29. The patient has been following up with nephrology clinic and was found to have the above labs today and subsequent reason for admission. July 15- patient doing well. No overnight events. Due for renal stent placement by urology 07/16. Prior medical conditions stable and at baseline on home medications. No further recommendations from hospitalist service. Currently managed per nephrology/urology July 16- patient will undergo ureteral stent placement today. no change in renal function except for hyperkalemia 5.4. Managed by nephrology. No other concerns expressed by nursing staff. No overnight events July 17- patient doing well except for complains of headache. No overnight events. No concerns per staff. No fever chills. Flat affect. White count 19, 000. Status post stenting. On Cipro twice a day. nephrology following renal function. On home meds - Constitutional Vitals: Vital Signs Temp Pulse Resp BP Pulse Ox 98.5 F 70 16 138/72 95 07/17/17 07:40 07/17/17 05:00 07/17/17 07:40 07/17/17 07:40 07/17/17 07:40 Period Temp Pulse Resp BP Sys/Foster Pulse Ox Last 24 Hr 97.2 F-98.9 F 70-92 11-18 112-152/60-91 94-100 Intake and Output 07/16/17 07/17/17 07/17/17 21:59 05:59 13:59 Intake Total 830 / 830 2645 / 2645 Balance 830 / 830 2645 / 2645 Weight 172 lb 8 oz Intake & Output: Intake & Output 07/16/17 07/17/17 07/17/17 21:59 05:59 13:59 Intake Total 830 / 830 2645 / 2645 Balance 830 / 830 2645 / 2645 Weight 172 lb 8 oz Intake: IV 985 / 985 Sodium Bicarbonate Vial 150 Meq 985 / 985 In Dextrose 5% in Water 850 ml @ 100 mls/hr IV Q10H [facility] Rx#: [id number] Oral 830 / 830 1660 / 1660 Other: Meal Dinner Percent of Meal Consumed 75% Feeding Ability Independent # Voids 2 2 General appearance: no acute distress Exam: flat affect resting comfortably Nonlabored breathing No anxiety Medical - PN: Obj Da - Labs CBC & Chem 7: 07/17/17 04:23 07/17/17 04:23 Labs: Abnormal Lab Results 07/17/17 07/17/17 07/16/17 04:23 04:23 04:28 WBC 19.8 H RBC 4.38 L Hgb 12.0 L Hct 36.1 L RDW 14.9 H MPV 10.9 H Monocytes % (Manual) RBC Morphology Anisocytosis Ovalocytes Potassium 5.4 H Carbon Dioxide 21 L 19 L Anion Gap 21.0 H BUN 54 H 55 H Creatinine 4.0 H 4.3 H Glucose 114 H Uric Acid 8.1 H 8.3 H Calcium Magnesium Alkaline Phosphatase 159 H 143 H Triglycerides 07/16/17 07/15/17 07/15/17 04:28 03:30 03:30 WBC 11.9 H RBC 3.86 L 3.49 L Hgb 10.6 L 9.7 L Hct 32.3 L 29.1 L RDW 15.4 H 15.4 H MPV Monocytes % (Manual) 14 H RBC Morphology Abnorm A Abnorm A Anisocytosis Few A 1+ A Ovalocytes Few A Potassium Carbon Dioxide 20 L Anion Gap BUN 59 H Creatinine 4.3 H Glucose 109 H Uric Acid 8.7 H Calcium 8.5 L Magnesium 1.4 L Alkaline Phosphatase 140 H Triglycerides 155 H Meds: Medications Acetaminophen (Tylenol) 650 mg PO Q4-6HP PRN PRN Reason: PAIN/FEVER > 101 Albuterol Sulfate (Ventolin) 2 puff INH Q4HP PRN PRN Reason: Shortness Of Breath Ciprofloxacin (Cipro) 500 mg PO BID [facility] Last Admin: 07/16/17 22:03 Dose: 500 mg Citalopram Hydrobromide (Celexa) 40 mg PO DAILY [facility] Last Admin: 07/16/17 08:19 Dose: 40 mg Docusate Sodium (Colace) 100 mg PO BID [facility] Last Admin: 07/16/17 22:03 Dose: 100 mg Gabapentin (Neurontin) 200 mg PO HS [facility] Last Admin: 07/16/17 22:02 Dose: 200 mg Gabapentin (Neurontin) 100 mg PO BID@0800,1200 [facility] Last Admin: 07/17/17 07:53 Dose: 100 mg Heparin Sodium (Porcine) (Heparin) 5,000 unit SQ Q12 [facility] Last Admin: 07/16/17 22:03 Dose: 5,000 unit Lorazepam (Ativan) 1 mg PO BID [facility] Last Admin: 07/16/17 22:03 Dose: 1 mg Nicotine (Nicoderm) 21 mg TOPICAL DAILY@1000 [facility] Last Admin: 07/16/17 11:35 Dose: 21 mg Olanzapine (Zyprexa) 20 mg PO DAILY [facility] Last Admin: 07/16/17 08:19 Dose: 20 mg Olanzapine (Zyprexa) 10 mg PO HS [facility] Last Admin: 07/16/17 22:03 Dose: 10 mg Ondansetron HCl (Zofran) 4 mg IV Q4-6HP PRN PRN Reason: Nausea And Vomiting Pantoprazole Sodium (Protonix) 40 mg PO QAMAC [facility] Last Admin: 07/17/17 07:53 Dose: 40 mg Risperidone (Risperdal) 0.5 mg PO BID [facility] Last Admin: 07/16/17 22:03 Dose: 0.5 mg Salmeterol Xinafoate (Serevent) 1 puff INH BID [facility] Last Admin: 07/16/17 22:04 Dose: Not Given Senna/Docusate Sodium (Senna Plus Tablet) 1 tab PO HS [facility] Last Admin: 07/16/17 22:03 Dose: 1 tab Sodium Bicarbonate (Sodium Bicarbonate) 650 mg PO TID [facility] Sodium Chloride (Saline Flush) 10 ml IV Q8 [facility] Last Admin: 07/17/17 06:00 Dose: 10 ml Tamsulosin HCl (Flomax) 0.4 mg PO QDAY [facility] Last Admin: 07/16/17 08:21 Dose: Not Given Vitamin D (Vitamin D3) 1,000 unit PO DAILY [facility] Medical - PN: A/P - Time Spent With Patient Total time spent is greater than 50% in coordination of care (as documented) at patient's floor/unit and/or counseling patient: 15 - 24 minutes (1) Acute kidney injury Status: Acute Assessment and plan: Assessment * acute renal failure management per nephrology.creatinine at 4 * Hyperkalemia managed by nephrology. potassium down to 4.8 * Obstructive uropathy-S/p stenting by urology.on Cipro twice a day Medical issues managed by hospitalist service * anxiety disorder clinically stable.continue lorazepam/citalopram * history of tobacco dependence on nicotine patch * History of bipolar disorder stable on olanzapine/risperidone * Neuropathy continue on gabapentin * History of reactive airway disease on bronchodilators * BPH on tamsulosin * Prophylaxis heparin * Full code Plan * pre-existing medical condition management as above * Renal issues managed by nephrology/urology Current Visit: No Medical - PN: Qual - Stroke Symptom Onset Unknown: No - VTE Deep Vein Thrombosis/Pulmonary Embolism Present on Admission: No
[2017-07-17] MEDS: CITALOPRAM 20 MG TABLET PO SCH (09:38)
[2017-07-17] MEDS: NICOTINE 21 MG PATCH TOPICAL SCH (09:38)
[2017-07-17] MEDS: CIPROFLOXACIN 500 MG TABLET PO SCH ×2 (09:38→21:43)
[2017-07-17] MEDS: HEPARIN 5,000 UNIT/ML VIAL SQ SCH ×2 (09:39→21:43)
[2017-07-17] MEDS: VITAMIN D3 1,000 UNIT TABLET PO SCH (09:39)
[2017-07-17] MEDS: SODIUM BICARBONATE 650 MG TABLET PO SCH ×3 (09:39→21:42)
[2017-07-17] MEDS: TAMSULOSIN 0.4 MG CAPSULE PO SCH (09:39)
[2017-07-17] MEDS: LORazepam 1 MG TABLET PO SCH ×2 (09:39→21:42)
[2017-07-17] MEDS: OLANZapine 5 MG TABLET PO SCH ×2 (09:39→21:53)
[2017-07-17] MEDS: risperiDONE 0.25 MG TABLET PO SCH ×2 (09:39→21:43)
[2017-07-17] MEDS: SALMETEROL XINAFOATE 1 PUFF INHALER INH SCH ×2 (09:40→21:45)
[2017-07-17] MEDS: DOCUSATE SODIUM 100 MG CAPSULE PO SCH ×2 (09:40→21:42)
[2017-07-17] MEDS: SENNOSIDES/DOCUSATE SODIUM 1 TAB TABLET PO SCH (21:42)
[2017-07-18] MEDS: 0.9 % SODIUM CHLORIDE 10 ML SYRINGE IV SCH ×3 (05:38→20:08)
[2017-07-18 06:11] LABS: Basophils # (Auto) 0 K/mcL (0.0-0.3); Basophils % (Auto) 0 % (0.0-2.0); Eosinophils # (Auto) 0.5 K/mcL (0.0-0.7); Granulocytes % (Auto) 76.9 % (38.0-78.0); Lymphocytes # (Auto) 1.8 K/mcL (1.5-4.8); Lymphocytes % (Auto) 11.7 % (15.5-49.0); Mean Corpuscular Hemoglobin 27.4 pg (26.0-34.0); Monocytes # (Auto) 1.3 K/mcL (0.1-0.9); Monocytes % (Auto) 8.4 % (1.0-12.0); Platelet Count 284 K/mcL (140-440); RBC 4.42 M/mcL (4.50-5.90); Red Cell Distribution Width 15.1 % (11.5-14.5)
[2017-07-18 06:48] LABS: ALT/SGPT 6 U/l (0-40); Albumin 4.1 gm/dL (3.2-5.2); Albumin/Globulin Ratio 1.1 (1.0-2.3); Alkaline Phosphatase 151 U/L (39-117); Bilirubin,Direct < 0.2 mg/dL (0.0-0.3); Blood Urea Nitrogen 53 mg/dl (6-20); Gamma Glutamyl Transpeptidase 16 U/L (8-61); Uric Acid 8.9 mg/dL (2.5-8.0)
[2017-07-18] MEDS: PANTOPRAZOLE 40 MG TABLET PO SCH (07:32)
--- NOTE | 2017-07-18 07:59 | Nephrology Progress Note ---
Subjective Patient information: Note initiated : 07/18/17 at 7:56 am Constantine Rivera is a [id number] male with chronic kidney disease stage 3, persistent non-nephrotic range proteinuria, benign prostatic hyperplasia, bilateral hydronephrosis, left ureteral reflux s/p cystoscopy, voiding cystourethrogram, bilateral stent placement and transurethral incision of the prostate on 01/27/17 and cystoscopy and bilateral stent removal on 06/10/17, history of metabolic acidosis and hyperkalemia, history of hyperuricemia and gout, vitamin D deficiency, secondary hyperparathyroidism, chronic anemia due to renal failure, presented [facility] for follow up on and referred to [facility] for direct admission for management of acute kidney injury with hyperkalemia and metabolic acidosis. Chief Complaint: Weakness. Principal diagnosis: Acute kidney injury with hyperkalemia and metabolic acidosis Interval history: No significant change since yesterday. Pertinent ROS: Cognitive impairment, somewhat unreliable history. No fever. No flank or abdominal pain. No urinary symptoms. Objective - Vital Signs Vital signs: Vital Signs Temp Pulse Resp BP Pulse Ox 07/18/17 06:44 98.4 F 49 H 07/18/17 05:00 98.9 F 98 H 14 117/76 96 07/18/17 00:03 98.8 F 96 H 16 131/89 96 07/17/17 19:46 98.4 F 76 14 116/79 97 07/17/17 16:00 97.7 F 16 134/87 95 07/17/17 11:13 98 F 16 140/89 96 Intake and Output 07/17/17 07/18/17 07/18/17 21:59 05:59 13:59 Intake Total 840 / 840 350 / 350 Balance 840 / 840 350 / 350 Intake: Oral 840 / 840 350 / 350 Other: Meal Lunch Percent of Meal Consumed 50% Feeding Ability Independent # Voids 1 Weight 175 lb Intake & Output: Intake & Output 07/17/17 07/18/17 07/18/17 21:59 05:59 13:59 Intake Total 840 / 840 350 / 350 Balance 840 / 840 350 / 350 Weight 175 lb Intake: Oral 840 / 840 350 / 350 Other: Meal Lunch Percent of Meal Consumed 50% Feeding Ability Independent # Voids 1 - General Appearance General appearance: appears started age EENT: mucous membranes moist Neck: supple Respiratory: clear Cardiology: normal S1, normal S2 Gastrointestinal: no tenderness Integumentary: warm and dry Neurologic: no focal deficit Musculoskeletal: no erythema, no cyanosis Psychiatric: mood/affect appropriate, cooperative - Lab 07/18/17 04:45 07/18/17 04:45 Most recent lab results Calcium 9.6 mg/dl (8.6-10.4) 07/18/17 04:45 Phosphorus 4.6 mg/dL (2.7-4.5) H 07/18/17 04:45 Magnesium 1.9 mg/dL (1.6-2.5) 07/18/17 04:45 Assessment and Plan (1) Acute kidney injury Associated with obstructive nephropathy with bilateral hydronephrosis. Progress: Serum creatinine 4.0, 4.1 with eGFR 17-18, without significant change after stents. Outpatient follow up scheduled at [facility] kidney and hypertension clinic on 07/22/17 after labs on 07/21/17, if discharged. Status: Acute Priority: High (2) Metabolic acidosis Development of high anion gap of 22 since stents; ?lactic acidosis, but does not look septic or uremic. Receiving Sodium Bicarbonate 650 mg PO TID Status: Acute Priority: Medium (3) Hydronephrosis, bilateral Bilateral ureteral stents on 07/16/[address] Schmitt. Status: Acute Priority: High
[2017-07-18] MEDS: HEPARIN 5,000 UNIT/ML VIAL SQ SCH ×2 (08:21→20:09)
[2017-07-18] MEDS: DOCUSATE SODIUM 100 MG CAPSULE PO SCH ×2 (08:22→20:07)
[2017-07-18] MEDS: CIPROFLOXACIN 500 MG TABLET PO SCH ×2 (08:22→20:07)
[2017-07-18] MEDS: SODIUM BICARBONATE 650 MG TABLET PO SCH ×3 (08:22→22:05)
[2017-07-18] MEDS: OLANZapine 5 MG TABLET PO SCH ×2 (08:22→20:07)
[2017-07-18] MEDS: risperiDONE 0.25 MG TABLET PO SCH ×2 (08:22→20:07)
[2017-07-18] MEDS: TAMSULOSIN 0.4 MG CAPSULE PO SCH (08:22)
[2017-07-18] MEDS: CITALOPRAM 20 MG TABLET PO SCH (08:22)
[2017-07-18] MEDS: LORazepam 1 MG TABLET PO SCH (08:23)
[2017-07-18] MEDS: SALMETEROL XINAFOATE 1 PUFF INHALER INH SCH ×2 (08:23→20:20)
[2017-07-18] MEDS: GABAPENTIN 100 MG CAPSULE PO SCH ×3 (08:23→20:08)
[2017-07-18] MEDS: VITAMIN D3 1,000 UNIT TABLET PO SCH (08:23)
[2017-07-18] MEDS: NICOTINE 21 MG PATCH TOPICAL SCH (10:23)
[2017-07-18 13:52] LABS: Appearance,Urine HAZY; Bacteria,Urine 0 /hpf (0); Bilirubin,Urine NEG (NEG); Color,Urine YELLOW; Glucose,Urine (UA) NEGATIVE (NEG); Leukocyte Esterase,Urine 500 /uL (NEG); Protein,Urine 30 mg/dL (NEG); Specific Gravity,Urine 1.011 (1.000-1.035); Urine Blood 0.03 mg/dL (<0.03); Urine Hyaline Cast 1 /lpf (0-2); Urine RBC 13 /hpf (0-1); Urine Squamous Epithelial Cell < 1 /hpf (0-4); Urine WBC 113 /hpf (0-4); Urobilinogen,Urine NEG (NEG)
--- NOTE | 2017-07-18 17:45 | Internal Med Progress Note ---
Medical - PN: Subj Patient information: Note initiated : 07/18/17 at 5:41 pm Service Date, if different from initiated Date: [] Patient: Constantine Rivera 42 y/o M admitted on 07/14/17 for Acute Kidney Injury- Hyperkalemia. Chief Complaint: [] Interval history: July 14- patient admitted with acute renal failure/hyperkalemia the setting of bilateral hydronephrosis. 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 His creatinine went up from 4.1 to 4.4 today, along with potassium from 5.6 to 6.1 with significant metabolic acidosis. Hospitalist Service was subsequently consulted to admit the patient while Nephrology will manage acute renal failure. The patient carries a history of obstructive uropathy status post stenting by Dr. Schmitt on 02/10 and subsequently stent removal on 05/29. The patient has been following up with nephrology clinic and was found to have the above labs today and subsequent reason for admission. July 15- patient doing well. No overnight events. Due for renal stent placement by urology 07/16. Prior medical conditions stable and at baseline on home medications. No further recommendations from hospitalist service. Currently managed per nephrology/urology July 16- patient will undergo ureteral stent placement today. no change in renal function except for hyperkalemia 5.4. Managed by nephrology. No other concerns expressed by nursing staff. No overnight events July 17- patient doing well except for complains of headache. No overnight events. No concerns per staff. No fever chills. Flat affect. White count 19, 000. Status post stenting. On Cipro twice a day. nephrology following renal function. On home meds july 18 Patient seen and examined no acute overnight events, WBC count trending down from yesterday, urine analysis distal abnormal cultures pending. Patient is on Cipro twice a day. Patient has acidosis lactic acid level is normal. On bicarbonate supplement. Nephrology is following. Patient was too drowsy this morning, denied any complaints. We will stop Ativan which is scheduled and see if this helps clear up the patient's mentation Pertinent ROS: Denies headache, dizziness Denies chest pain, palpitations Denies cough or shortness of breath Denies abdominal pain, nausea or vomiting. - Constitutional Vitals: Vital Signs Temp Pulse Resp BP Pulse Ox 98.2 F 98 H 16 110/74 96 07/18/17 11:49 07/18/17 05:00 07/18/17 11:49 07/18/17 11:49 07/18/17 11:49 Period Temp Pulse Resp BP Sys/Foster Pulse Ox Last 24 Hr 98.2 F-98.9 F 76-98 14-16 110-131/74-89 93-97 Intake and Output 07/18/17 07/18/17 07/18/17 05:59 13:59 21:59 Intake Total 350 / 350 360 / 360 Output Total Balance 350 / 350 359 / 359 Intake & Output: Intake & Output 07/18/17 07/18/17 07/18/17 05:59 13:59 21:59 Intake Total 350 / 350 360 / 360 Output Total Balance 350 / 350 359 / 359 Intake: Oral 350 / 350 360 / 360 Output: # of times incontinent of urine Other: # Voids 1 Exam: Constitutional; Afebrile, cooperative, drowsy, not in distress. Eyes- No icterus, , No periorbital swelling Ears- Ext ear normal, hearing normal to conversation. Neck- Midline trachea, supple Respiratory system: Air Entry equal on both sides, No crackles or wheezing, no rhonchi. CVS- Rate rhythm regular, S1,S2 heard, no gallop, no rub. Abdomen- Soft nontender abdomen, no organomegaly, no tenderness, no guarding or rigidity, [employer]- AOOx1, moving all extremities, no gross focal deficit noted. Medical - PN: Obj Da - Labs CBC & Chem 7: 07/18/17 04:45 07/18/17 04:45 Labs: Abnormal Lab Results 07/18/17 07/18/17 07/17/17 04:45 04:45 12:52 WBC 15.1 H RBC 4.42 L Hgb 12.1 L Hct 36.7 L RDW 15.1 H MPV Lymph % (Auto) 11.7 L Gran # 11.6 H [place] # (Auto) 1.3 H RBC Morphology Anisocytosis Sodium 146 H Potassium Carbon Dioxide 20 L Anion Gap 22.0 H BUN 53 H Creatinine 4.1 H Glucose Uric Acid 8.9 H Phosphorus 4.6 H Alkaline Phosphatase 151 H Globulin 3.8 H Triglycerides 188 H Urine Protein 30 A Urine Occult Blood 0.03 A Ur Leukocyte Esterase 500 A Urine RBC 13 H Urine WBC 113 H 07/17/17 07/17/17 07/16/17 04:23 04:23 04:28 WBC 19.8 H RBC 4.38 L Hgb 12.0 L Hct 36.1 L RDW 14.9 H MPV 10.9 H Lymph % (Auto) Gran # [place] # (Auto) RBC Morphology Anisocytosis Sodium Potassium 5.4 H Carbon Dioxide 21 L 19 L Anion Gap 21.0 H BUN 54 H 55 H Creatinine 4.0 H 4.3 H Glucose 114 H Uric Acid 8.1 H 8.3 H Phosphorus Alkaline Phosphatase 159 H 143 H Globulin Triglycerides Urine Protein Urine Occult Blood Ur Leukocyte Esterase Urine RBC Urine WBC 07/16/17 04:28 WBC 11.9 H RBC 3.86 L Hgb 10.6 L Hct 32.3 L RDW 15.4 H MPV Lymph % (Auto) Gran # [place] # (Auto) RBC Morphology Abnorm A Anisocytosis Few A Sodium Potassium Carbon Dioxide Anion Gap BUN Creatinine Glucose Uric Acid Phosphorus Alkaline Phosphatase Globulin Triglycerides Urine Protein Urine Occult Blood Ur Leukocyte Esterase Urine RBC Urine WBC Meds: Medications Acetaminophen (Tylenol) 650 mg PO Q4-6HP PRN PRN Reason: PAIN/FEVER > 101 Albuterol Sulfate (Ventolin) 2 puff INH Q4HP PRN PRN Reason: Shortness Of Breath Ciprofloxacin (Cipro) 500 mg PO BID [facility] Last Admin: 07/18/17 08:22 Dose: 500 mg Citalopram Hydrobromide (Celexa) 40 mg PO DAILY [facility] Last Admin: 07/18/17 08:22 Dose: 40 mg Docusate Sodium (Colace) 100 mg PO BID [facility] Last Admin: 07/18/17 08:22 Dose: 100 mg Gabapentin (Neurontin) 200 mg PO HS [facility] Last Admin: 07/17/17 21:42 Dose: 200 mg Gabapentin (Neurontin) 100 mg PO BID@0800,1200 [facility] Last Admin: 07/18/17 12:46 Dose: 100 mg Heparin Sodium (Porcine) (Heparin) 5,000 unit SQ Q12 [facility] Last Admin: 07/18/17 08:21 Dose: 5,000 unit Nicotine (Nicoderm) 21 mg TOPICAL DAILY@1000 [facility] Last Admin: 07/18/17 10:23 Dose: 21 mg Olanzapine (Zyprexa) 20 mg PO DAILY [facility] Last Admin: 07/18/17 08:22 Dose: 20 mg Olanzapine (Zyprexa) 10 mg PO [facility] Last Admin: 07/17/17 21:53 Dose: 10 mg Ondansetron HCl (Zofran) 4 mg IV Q4-6HP PRN PRN Reason: Nausea And Vomiting Pantoprazole Sodium (Protonix) 40 mg PO QAMAC [facility] Last Admin: 07/18/17 07:32 Dose: 40 mg Risperidone (Risperdal) 0.5 mg PO BID [facility] Last Admin: 07/18/17 08:22 Dose: 0.5 mg Salmeterol Xinafoate (Serevent) 1 puff INH BID [facility] Last Admin: 07/18/17 08:23 Dose: Not Given Senna/Docusate Sodium (Senna Plus Tablet) 1 tab PO HS [facility] Last Admin: 07/17/17 21:42 Dose: 1 tab Sodium Bicarbonate (Sodium Bicarbonate) 650 mg PO TID [facility] Last Admin: 07/18/17 16:34 Dose: 650 mg Sodium Chloride (Saline Flush) 10 ml IV Q8 [facility] Last Admin: 07/18/17 16:34 Dose: 10 ml Tamsulosin HCl (Flomax) 0.4 mg PO QDAY [facility] Last Admin: 07/18/17 08:22 Dose: 0.4 mg Vitamin D (Vitamin D3) 1,000 unit PO DAILY [facility] Last Admin: 07/18/17 08:23 Dose: 1,000 unit Medical - PN: A/P - Time Spent With Patient Total time spent is greater than 50% in coordination of care (as documented) at patient's floor/unit and/or counseling patient: - Narrative A/P Narrative: Assessment and plan: Acute kidney injury-followed by nephrology, creatinine is stable, patient is making urine, patient has been given an outpatient appointment by the nephrology team. Hyperkalemia-resolved Obstructive uropathy-status post stent placement by urology, patient is on antibiotics Leukocytosis-urinary tract infection-patient is on Cipro for same, does not appear septic however WBC has been trending up over the last few days, trended down today, pro-calcitonin mildly elevated at 0.13. Will await for urine cultures and monitor the patient's WBC count Bipolar disorder-continue home medications hold lorazepam Anxiety-patient is on lorazepam and citalopram-Lorazepam is given his scheduled medication at least during this stay, may be responsible for decreased mentation just hold for now and observe Prostate hypertrophy-on tamsulosin continue same History of reactive airway disease-on bronchodilators continue same DVT prophylaxis with heparin subcutaneous Peripheral neuropathy-on gabapentin Full code Medical - PN: Qual - Stroke Symptom Onset Unknown: No - VTE Deep Vein Thrombosis/Pulmonary Embolism Present on Admission: No
[2017-07-18] MEDS: SENNOSIDES/DOCUSATE SODIUM 1 TAB TABLET PO SCH (20:07)
[2017-07-19] MEDS: 0.9 % SODIUM CHLORIDE 10 ML SYRINGE IV SCH ×3 (04:41→21:27)
[2017-07-19] MEDS: PANTOPRAZOLE 40 MG TABLET PO SCH (07:29)
[2017-07-19 07:44] LABS: ALT/SGPT 7 U/l (0-40); Albumin 3.9 gm/dL (3.2-5.2); Albumin/Globulin Ratio 1.1 (1.0-2.3); Alkaline Phosphatase 136 U/L (39-117); Bilirubin,Direct < 0.2 mg/dL (0.0-0.3); Blood Urea Nitrogen 59 mg/dl (6-20); Gamma Glutamyl Transpeptidase 16 U/L (8-61); Uric Acid 9.5 mg/dL (2.5-8.0)
[2017-07-19 08:32] LABS: Basophils # (Auto) 0 K/mcL (0.0-0.3); Basophils % (Auto) 0.3 % (0.0-2.0); Eosinophils # (Auto) 0.4 K/mcL (0.0-0.7); Eosinophils % (Auto) 3.2 % (0.0-7.0); Granulocytes % (Auto) 66.8 % (38.0-78.0); Lymphocytes # (Auto) 2.5 K/mcL (1.5-4.8); Lymphocytes % (Auto) 20.7 % (15.5-49.0); Mean Cell Volume 83.1 fL (80.0-100.0); Mean Corpuscular Hemoglobin 27.4 pg (26.0-34.0); Monocytes # (Auto) 1.1 K/mcL (0.1-0.9); Platelet Count 267 K/mcL (140-440); RBC 4.25 M/mcL (4.50-5.90); Red Cell Distribution Width 15.3 % (11.5-14.5)
--- NOTE | 2017-07-19 08:45 | Nephrology Progress Note ---
Subjective Patient information: Note initiated : 07/19/17 at 8:44 am Constantine Rivera is a [id number] male with chronic kidney disease stage 3, persistent non-nephrotic range proteinuria, benign prostatic hyperplasia, bilateral hydronephrosis, left ureteral reflux s/p cystoscopy, voiding cystourethrogram, bilateral stent placement and transurethral incision of the prostate on 01/27/17 and cystoscopy and bilateral stent removal on 06/10/17, history of metabolic acidosis and hyperkalemia, history of hyperuricemia and gout, vitamin D deficiency, secondary hyperparathyroidism, chronic anemia due to renal failure, [facility] for follow up on and referred to [facility] for direct admission for management of acute kidney injury with hyperkalemia and metabolic acidosis. Chief Complaint: Weakness Principal diagnosis: Acute kidney injury with hyperkalemia and metabolic acidosis Interval history: No new development. Pertinent ROS: Does not talk. No obvious discomfort. Objective - Vital Signs Vital signs: Vital Signs Temp Pulse Resp BP BP Pulse Ox 07/19/17 07:33 99.7 F H 16 112/76 97 07/19/17 04:00 97.8 F 70 18 111/73 94 07/18/17 23:29 98.8 F 90 16 113/83 94 07/18/17 20:30 97.9 F 68 14 112/74 97 07/18/17 17:00 98.4 F 16 120/76 97 07/18/17 11:49 98.2 F 16 110/74 96 Intake and Output 07/18/17 07/19/17 07/19/17 21:59 05:59 13:59 Intake Total 240 / 240 550 / 550 Output Total 351 / 351 Balance 240 / 240 199 / 199 Intake: Oral 240 / 240 550 / 550 Output: Void Amount 350 / 350 # of times incontinent of urine Other: Meal Dinner Percent of Meal Consumed 75% Feeding Ability Independent Weight 171 lb 8 oz Intake & Output: Intake & Output 07/18/17 07/19/17 07/19/17 21:59 05:59 13:59 Intake Total 240 / 240 550 / 550 Output Total 351 / 351 Balance 240 / 240 199 / 199 Weight 171 lb 8 oz Intake: Oral 240 / 240 550 / 550 Output: Void Amount 350 / 350 # of times incontinent of urine Other: Meal Dinner Percent of Meal Consumed 75% Feeding Ability Independent - General Appearance General appearance: appears started age EENT: mucous membranes moist Neck: supple Respiratory: clear Cardiology: no edema, normal S1, normal S2 Gastrointestinal: no tenderness Integumentary: warm and dry Neurologic: no focal deficit, alert and oriented x3 Musculoskeletal: no erythema, no cyanosis Psychiatric: mood/affect appropriate, cooperative - Lab 07/19/17 06:40 07/19/17 06:40 Most recent lab results Calcium 9.5 mg/dl (8.6-10.4) 07/19/17 06:40 Phosphorus 4.5 mg/dL (2.7-4.5) 07/19/17 06:40 Magnesium 1.8 mg/dL (1.6-2.5) 07/19/17 06:40 Assessment and Plan (1) Acute kidney injury Associated with obstructive nephropathy with bilateral hydronephrosis. Progress: Serum creatinine 4.0-4.2 with eGFR 17-18, without significant change after stents. Outpatient follow up scheduled at [facility] kidney [facility] hypertension clinic on 07/22/17 after labs on 07/21/17, if discharged. Status: Acute Priority: High (2) Metabolic acidosis Anion gap down to 17. Receiving Sodium Bicarbonate 650 mg PO TID Status: Resolved Priority: Medium (3) Hydronephrosis, bilateral Bilateral ureteral stents on 07/16/[address] Schmitt. Status: Acute Priority: High
[2017-07-19] MEDS: HEPARIN 5,000 UNIT/ML VIAL SQ SCH ×2 (10:14→21:23)
[2017-07-19] MEDS: CITALOPRAM 20 MG TABLET PO SCH (10:14)
[2017-07-19] MEDS: risperiDONE 0.25 MG TABLET PO SCH ×2 (10:15→21:23)
[2017-07-19] MEDS: SODIUM BICARBONATE 650 MG TABLET PO SCH ×3 (10:15→21:23)
[2017-07-19] MEDS: DOCUSATE SODIUM 100 MG CAPSULE PO SCH ×2 (10:15→21:22)
[2017-07-19] MEDS: GABAPENTIN 100 MG CAPSULE PO SCH ×3 (10:15→21:23)
[2017-07-19] MEDS: SALMETEROL XINAFOATE 1 PUFF INHALER INH SCH ×2 (10:15→21:25)
[2017-07-19] MEDS: VITAMIN D3 1,000 UNIT TABLET PO SCH (10:15)
[2017-07-19] MEDS: CIPROFLOXACIN 500 MG TABLET PO SCH ×2 (10:15→21:22)
[2017-07-19] MEDS: TAMSULOSIN 0.4 MG CAPSULE PO SCH (10:15)
[2017-07-19] MEDS: OLANZapine 5 MG TABLET PO SCH ×2 (10:15→21:22)
[2017-07-19] MEDS: NICOTINE 21 MG PATCH TOPICAL SCH (10:18)
[2017-07-19] MEDS ORDERED: LORazepam 1 MG TABLET PO PRN (13:23)
--- NOTE | 2017-07-19 16:11 | Internal Med Progress Note ---
Medical - PN: Subj Patient information: Note initiated : 07/19/17 at 4:08 pm Service Date, if different from initiated Date: [] Patient: Constantine Rivera 42 y/o M admitted on 07/14/17 for Acute Kidney Injury- Hyperkalemia. Chief Complaint: [] Interval history: July 14- patient admitted with acute renal failure/hyperkalemia the setting of bilateral hydronephrosis. 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 His creatinine went up from 4.1 to 4.4 today, along with potassium from 5.6 to 6.1 with significant metabolic acidosis. Hospitalist Service was subsequently consulted to admit the patient while Nephrology will manage acute renal failure. The patient carries a history of obstructive uropathy status post stenting by Dr. Schmitt on 02/10 and subsequently stent removal on 05/29. The patient has been following up with nephrology clinic and was found to have the above labs today and subsequent reason for admission. July 15- patient doing well. No overnight events. Due for renal stent placement by urology 07/16. Prior medical conditions stable and at baseline on home medications. No further recommendations from hospitalist service. Currently managed per nephrology/urology July 16- patient will undergo ureteral stent placement today. no change in renal function except for hyperkalemia 5.4. Managed by nephrology. No other concerns expressed by nursing staff. No overnight events July 17- patient doing well except for complains of headache. No overnight events. No concerns per staff. No fever chills. Flat affect. White count 19, 000. Status post stenting. On Cipro twice a day. nephrology following renal function. On home meds july 18 Patient seen and examined no acute overnight events, WBC count trending down from yesterday, urine analysis distal abnormal cultures pending. Patient is on Cipro twice a day. Patient has acidosis lactic acid level is normal. On bicarbonate supplement. Nephrology is following. Patient was too drowsy this morning, denied any complaints. We will stop Ativan which is scheduled and see if this helps clear up the patient's mentation July 19 Pt seen examined, no acute overnight issues, Pt was sitting in bed, planning to hav breakfast he had no complaints mental status better, was much more alert than yesterday resume ativan but on a prn basis wbc trending down urine culture still neg anticipate d/c in AM Pertinent ROS: Denies headache, dizziness Denies chest pain, palpitations Denies cough or shortness of breath Denies abdominal pain, nausea or vomiting. - Constitutional Vitals: Vital Signs Temp Pulse Resp BP Pulse Ox 98.3 F 70 16 117/76 98 07/19/17 15:23 07/19/17 04:00 07/19/17 15:23 07/19/17 15:23 07/19/17 15:23 Period Temp Pulse Resp BP Sys/Foster Pulse Ox Last 24 Hr 97.8 F-99.7 F 68-90 14-18 111-120/73-83 94-98 Intake and Output 07/19/17 07/19/17 07/19/17 05:59 13:59 21:59 Intake Total 550 / 550 720 / 720 650 / 650 Output Total 351 / 351 0 / 0 Balance 199 / 199 720 / 720 650 / 650 Intake & Output: Intake & Output 07/19/17 07/19/17 07/19/17 05:59 13:59 21:59 Intake Total 550 / 550 720 / 720 650 / 650 Output Total 351 / 351 0 / 0 Balance 199 / 199 720 / 720 650 / 650 Intake: Oral 550 / 550 720 / 720 650 / 650 Output: Void Amount 350 / 350 0 / 0 # of times incontinent of urine Other: Meal Lunch Percent of Meal Consumed 25% Feeding Ability Independent Exam: Constitutional; Afebrile, cooperative, alert, not in distress. Eyes- No icterus, , No periorbital swelling Neck- Midline trachea, supple Respiratory system: Air Entry equal on both sides, No crackles or wheezing, no rhonchi. CVS- Rate rhythm regular, S1,S2 heard, no gallop, no rub. Abdomen- Soft nontender abdomen, no organomegaly, no tenderness, no guarding or rigidity, [employer]- AOOx3, moving all extremities, no gross focal deficit noted. Medical - PN: Obj Da - Labs CBC & Chem 7: 07/19/17 06:40 07/19/17 06:40 Labs: Abnormal Lab Results 07/19/17 07/19/17 07/18/17 06:40 06:40 04:45 WBC 12.1 H RBC 4.25 L Hgb 11.6 L Hct 35.3 L RDW 15.3 H MPV Lymph % (Auto) Gran # 8.1 H [place] # (Auto) 1.1 H Sodium 146 H Carbon Dioxide 20 L Anion Gap 17.0 H 22.0 H BUN 59 H 53 H Creatinine 4.2 H 4.1 H Glucose Uric Acid 9.5 H 8.9 H Phosphorus 4.6 H Alkaline Phosphatase 136 H 151 H Globulin 3.8 H Triglycerides 167 H 188 H Urine Protein Urine Occult Blood Ur Leukocyte Esterase Urine RBC Urine WBC 07/18/17 07/17/17 07/17/17 04:45 12:52 04:23 WBC 15.1 H RBC 4.42 L Hgb 12.1 L Hct 36.7 L RDW 15.1 H MPV Lymph % (Auto) 11.7 L Gran # 11.6 H [place] # (Auto) 1.3 H Sodium Carbon Dioxide 21 L Anion Gap 21.0 H BUN 54 H Creatinine 4.0 H Glucose 114 H Uric Acid 8.1 H Phosphorus Alkaline Phosphatase 159 H Globulin Triglycerides Urine Protein 30 A Urine Occult Blood 0.03 A Ur Leukocyte Esterase 500 A Urine RBC 13 H Urine WBC 113 H 07/17/17 04:23 WBC 19.8 H RBC 4.38 L Hgb 12.0 L Hct 36.1 L RDW 14.9 H MPV 10.9 H Lymph % (Auto) Gran # [place] # (Auto) Sodium Carbon Dioxide Anion Gap BUN Creatinine Glucose Uric Acid Phosphorus Alkaline Phosphatase Globulin Triglycerides Urine Protein Urine Occult Blood Ur Leukocyte Esterase Urine RBC Urine WBC Meds: Medications Acetaminophen (Tylenol) 650 mg PO Q4-6HP PRN PRN Reason: PAIN/FEVER > 101 Albuterol Sulfate (Ventolin) 2 puff INH Q4HP PRN PRN Reason: Shortness Of Breath Ciprofloxacin (Cipro) 500 mg PO BID [facility] Last Admin: 07/19/17 10:15 Dose: 500 mg Citalopram Hydrobromide (Celexa) 40 mg PO DAILY [facility] Last Admin: 07/19/17 10:14 Dose: 40 mg Docusate Sodium (Colace) 100 mg PO BID [facility] Last Admin: 07/19/17 10:15 Dose: 100 mg Gabapentin (Neurontin) 200 mg PO [facility] Last Admin: 07/18/17 20:08 Dose: 200 mg Gabapentin (Neurontin) 100 mg PO BID@0800,1200 [facility] Last Admin: 07/19/17 11:56 Dose: 100 mg Heparin Sodium (Porcine) (Heparin) 5,000 unit SQ Q12 [facility] Last Admin: 07/19/17 10:14 Dose: 5,000 unit Lorazepam (Ativan) 1 mg PO BIDP PRN PRN Reason: ANXIETY/SEDATION Nicotine (Nicoderm) 21 mg TOPICAL DAILY@1000 [facility] Last Admin: 07/19/17 10:18 Dose: 21 mg Olanzapine (Zyprexa) 20 mg PO DAILY [facility] Last Admin: 07/19/17 10:15 Dose: 20 mg Olanzapine (Zyprexa) 10 mg PO HS [facility] Last Admin: 07/18/17 20:07 Dose: 10 mg Ondansetron HCl (Zofran) 4 mg IV Q4-6HP PRN PRN Reason: Nausea And Vomiting Pantoprazole Sodium (Protonix) 40 mg PO QAMAC [facility] Last Admin: 07/19/17 07:29 Dose: 40 mg Risperidone (Risperdal) 0.5 mg PO BID [facility] Last Admin: 07/19/17 10:15 Dose: 0.5 mg Salmeterol Xinafoate (Serevent) 1 puff INH BID [facility] Last Admin: 07/19/17 10:15 Dose: Not Given Senna/Docusate Sodium (Senna Plus Tablet) 1 tab PO HS [facility] Last Admin: 07/18/17 20:07 Dose: 1 tab Sodium Bicarbonate (Sodium Bicarbonate) 650 mg PO TID [facility] Last Admin: 07/19/17 16:04 Dose: 650 mg Sodium Chloride (Saline Flush) 10 ml IV Q8 [facility] Last Admin: 07/19/17 14:17 Dose: 10 ml Tamsulosin HCl (Flomax) 0.4 mg PO QDAY [facility] Last Admin: 07/19/17 10:15 Dose: 0.4 mg Vitamin D (Vitamin D3) 1,000 unit PO DAILY [facility] Last Admin: 07/19/17 10:15 Dose: 1,000 unit Medical - PN: A/P - Time Spent With Patient Total time spent is greater than 50% in coordination of care (as documented) at patient's floor/unit and/or counseling patient: - Narrative A/P Narrative: Assessment and plan: Acute kidney injury-followed by nephrology, creatinine is stable, patient is making urine, patient has been given an outpatient appointment by the nephrology team. Hyperkalemia-resolved Obstructive uropathy-status post stent placement by urology, patient is on antibiotics Leukocytosis-urinary tract infection-patient is on Cipro for same, does not appear septic however WBC has been trending up over the last few days, trending down now, pro-calcitonin mildly elevated at 0.13. Will await for urine cultures , Bipolar disorder-continue home medications. change ativan to prn Anxiety-patient is on lorazepam and citalopram-Lorazepam is given his scheduled medication at least during this stay, may be responsible for decreased mentation Prostate hypertrophy-on tamsulosin continue same History of reactive airway disease-on bronchodilators continue same DVT prophylaxis with heparin subcutaneous Peripheral neuropathy-on gabapentin Full code Medical - PN: Qual - Stroke Symptom Onset Unknown: No - VTE Deep Vein Thrombosis/Pulmonary Embolism Present on Admission: No
[2017-07-19] MEDS: SENNOSIDES/DOCUSATE SODIUM 1 TAB TABLET PO SCH (21:22)
--- NOTE | 2017-07-19 23:35 | Discharge Summary ---
Medical - DS: Prov Patient information: Note initiated : 07/19/17 at 11:31 pm Service Date, if different from initiated Date: [] Patient: Constantine Rivrea 42 y/o M admitted on 07/14/17 for Acute Kidney Injury- Hyperkalemia. Date of admission: 07/14/17 11:28 Discharge date: 07/20/17 Primary care physician: Karma Bonner Consults: Pepper Salcido MD (nephrology) Cornelio Schmitt MD (urology) Medical - DS: Meds - Discharge Medications Prescriptions: Ciprofloxacin HCl [Cipro] 500 mg PO DAILY #7 tab Sodium Bicarbonate 650 mg PO TID #90 tab Active and Home Medications: Home Medications citalopram 40 mg tablet 40 mg PO QDAY 10/13/16 [History Confirmed 07/14/17 Last Taken Unknown] lorazepam 2 mg tablet 1 mg PO BID 10/13/16 [History Confirmed 07/14/17 Last Taken Unknown] salmeterol 50 mcg/dose blister powder for inhalation 1 inh INHALATION BID [History Confirmed 07/14/17 Last Taken Unknown] albuterol sulfate HFA 90 mcg/actuation aerosol inhaler 2 puff INHALATION BID g 10/14/16 [History Confirmed 07/14/17 Last Taken Unknown] olanzapine 10 mg tablet See Label Instructions .ROUTE .COMPLEX 10/14/16 [ History Confirmed 07/14/17 Last Taken Unknown] gabapentin 100 mg capsule 100 mg PO BID@08,1200 01/12/17 [History Confirmed Last Taken Unknown] tamsulosin 0.4 mg capsule 0.4 mg PO QDAY 03/16/17 [History Confirmed 07/14/17 Last Taken Unknown] risperidone 0.5 mg tablet 0.5 mg PO BID tab 06/10/17 [History Confirmed Last Taken Unknown] Gabapentin [Neurontin] 200 mg PO HS 07/14/17 [History Confirmed 07/14/17 Last Taken Unknown] Vitamin D3 1,000 unit PO DAILY 07/14/17 [History Confirmed 07/14/17 Last Taken Unknown] ciprofloxacin 500 mg tablet 500 mg PO BID tab 07/14/17 [History Confirmed 07/14 Last Taken Unknown] Medical - DS: Hosp Hospital course: Mr. Rivera is a 42 year old patient admitted with acute renal failure/ hyperkalemia the setting of bilateral hydronephrosis. He was following up with his butt sawyer today after he had elevated creatinine in the recent past. His creatinine went up from 4.1 to 4.4 today, along with potassium from 5.6 to 6.1 with significant metabolic acidosis. Hospitalist Service was subsequently consulted to admit the patient while Nephrology will manage acute renal failure. The patient carries a history of obstructive uropathy status post stenting by Dr. Schmitt on 02/10 and subsequently stent removal on 05/29. The patient has been following up with nephrology clinic and was found to have the above labs today and subsequent reason for admission. On 07/16 he underwent bilateral ureteral stent placement by dr Schmitt, which was well tolerated. However, Cr has remained elevated at around 4. WBC increased up to 19, thought to be secondary to an UTI. Patient was started on Ciprofloxacin with subsequent normalization of the WBC. At the recommendation of dr Salcido patient was started on bicarb tablet three times daily. Patient has been afebrile during his hospital stay and has had no problems with voiding. He will be discharged back to the [place] residential setting. Discharge diagnosis: Acute on chronic renal failure, bilateral hydronephrosis Secondary discharge diagnosis: Bipolar disorder Reason for admission: Acute on chronic renal failure, bilateral hydronephrosis Pertinent studies/significant findings: 07/16: Creatinine 4.4, potassium 6.1, bicarbonate 16, calcium 8.9. Complications: None - Time Spent with Patient Total time spent providing and/or coordinating discharge services: Less than 30 minutes Medical - DS: Exam - Constitutional Vitals: Vital Signs Temp Pulse Resp BP BP Pulse Ox 07/19/17 19:13 97.5 F 90 16 115/78 96 07/19/17 15:23 98.3 F 16 117/76 98 07/19/17 11:39 98.7 F 16 115/74 97 07/19/17 07:33 99.7 F H 16 112/76 97 07/19/17 04:00 97.8 F 70 18 111/73 94 Intake and Output 07/19/17 07/19/17 07/20/17 13:59 21:59 05:59 Intake Total 720 / 720 1010 / 1010 Output Total Balance 720 / 720 1009 / 1009 Intake: Oral 720 / 720 1010 / 1010 Output: Void Amount 0 / 0 # of times incontinent of urine 1 / Other: Meal Lunch Dinner Percent of Meal Consumed 25% 25% Feeding Ability Independent Independent # Voids 1 General appearance: no acute distress - Respiratory Respiratory exam: Present: normal respiratory exam - Cardiovascular Cardiovascular exam: Present: normal rate and rhythm - GI/Abdominal GI/Abdominal exam: Present: normal bowel sounds Medical - DS: Data Procedures and tests throughout hospitalization: DATE OF OPERATION: 07/16/2017 PREOPERATIVE DIAGNOSIS: Bilateral hydronephrosis. POSTOPERATIVE DIAGNOSIS: Bilateral hydronephrosis. PROCEDURE: Bilateral stent placement. SURGEON: Cornelio Schmitt M.D. INDICATION: The patient is a 42-year-old gentleman who we have seen in the past who developed renal failure secondary to hydronephrosis. He is emptying his bladder and has approximately 268 mL residual. His creatinine was increasing. He previously had stents. We gave him a trial with them being removed and his creatinine worsened. Therefore, he presents for bilateral stent placement. PROCEDURE: The patient was identified and consent was signed. He was given general anesthesia, placed in lithotomy position, prepped and draped in a standard fashion. Cystourethroscopy showed normal-appearing urethra. He did have 4+ trabeculation. The bladder neck was status post TUIP. The orifice on the right was found. A wire was placed and a 6 x 26 stent was placed without difficulty. We then repeated the procedure on the left side. It should be noted this is a laterally placed orifice. Again, both stents showed good curls in the kidney and the bladder. His bladder was drained. He was awoken and taken to the recovery room in stable condition. Labs on day of discharge: Labs from last 24 hours 07/19/17 07/19/17 06:40 06:40 WBC 12.1 H RBC 4.25 L Hgb 11.6 L Hct 35.3 L MCV 83.1 MCH 27.4 MCHC 33.0 RDW 15.3 H Plt Count 267 MPV 9.9 Gran % 66.8 Lymph % (Auto) 20.7 [place] % (Auto) 9.0 Eos % (Auto) 3.2 Baso % (Auto) 0.3 Gran # 8.1 H Lymph # (Auto) 2.5 [place] # (Auto) 1.1 H Eos # (Auto) 0.4 Baso # (Auto) 0 Sodium 139 Potassium 4.4 Chloride 100 Carbon Dioxide 22 Anion Gap 17.0 H BUN 59 H Creatinine 4.2 H GFR Calculation 17 Glucose 94 Uric Acid 9.5 H Calcium 9.5 Phosphorus 4.5 Magnesium 1.8 Total Bilirubin 0.3 Direct Bilirubin < 0.2 GGT 16 AST 16 ALT 7 Alkaline Phosphatase 136 H Lactate Dehydrogenase 134 Total Protein 7.4 Albumin 3.9 Globulin 3.5 Albumin/Globulin Ratio 1.1 Triglycerides 167 H Preliminary micro results at discharge 07/17/17 12:52 Urine Culture - Preliminary Urine - Clean Void Mid-Stream - Impressions Acute kidney injury Associated with obstructive nephropathy with bilateral hydronephrosis. Progress: Serum creatinine 4.0-4.2 with eGFR 17-18, without significant change after bilateral ureteral stent placement 07/16 Medical - DS: A/P - Patient/Caregiver Discharge Instructions Activity: increase activity as tolerated Diet: Regular Diet - Follow up Plan Follow up with: Pepper Salcido MD [Physician] - 07/22/17 9:45 am (Please get your lab drawn ( renal panel) on July 21 at the [facility] Cornelio Schmitt MD [Physician] - 07/31/17 8:30 am Disposition: Xfer Other Prognosis: Fair Rehab Potential: Fair Overall status at discharge: patient is progressing back to baseline Medical - DS: Qual - VTE Deep Vein Thrombosis/Pulmonary Embolism Present on Admission: No
[2017-07-20] MEDS: 0.9 % SODIUM CHLORIDE 10 ML SYRINGE IV SCH (04:26)
[2017-07-20 05:37] LABS: Basophils # (Auto) 0 K/mcL (0.0-0.3); Basophils % (Auto) 0.4 % (0.0-2.0); Eosinophils # (Auto) 0.4 K/mcL (0.0-0.7); Eosinophils % (Auto) 3.8 % (0.0-7.0); Granulocytes % (Auto) 63.1 % (38.0-78.0); Lymphocytes # (Auto) 2.3 K/mcL (1.5-4.8); Lymphocytes % (Auto) 22.9 % (15.5-49.0); Mean Cell Volume 84.4 fL (80.0-100.0); Mean Corpuscular HGB Conc 33.3 g/dL (31.0-36.0); Mean Corpuscular Hemoglobin 28.1 pg (26.0-34.0); Monocytes % (Auto) 9.8 % (1.0-12.0); Platelet Count 249 K/mcL (140-440); RBC 4.18 M/mcL (4.50-5.90); Red Cell Distribution Width 15.2 % (11.5-14.5)
[2017-07-20 06:12] LABS: ALT/SGPT 9 U/l (0-40); Albumin 3.9 gm/dL (3.2-5.2); Albumin/Globulin Ratio 1.1 (1.0-2.3); Alkaline Phosphatase 126 U/L (39-117); Bilirubin,Direct < 0.2 mg/dL (0.0-0.3); Blood Urea Nitrogen 65 mg/dl (6-20); Gamma Glutamyl Transpeptidase 16 U/L (8-61)
--- NOTE | 2017-07-20 06:47 | Nephrology Progress Note ---
Subjective Patient information: Note initiated : 07/20/17 at 6:47 am Constantine Rivera is a [id number] male with chronic kidney disease stage 3, persistent non-nephrotic range proteinuria, benign prostatic hyperplasia, bilateral hydronephrosis, left ureteral reflux s/p cystoscopy, voiding cystourethrogram, bilateral stent placement and transurethral incision of the prostate on 01/27/17 and cystoscopy and bilateral stent removal on 06/10/17, history of metabolic acidosis and hyperkalemia, history of hyperuricemia and gout, vitamin D deficiency, secondary hyperparathyroidism, chronic anemia due to renal failure, [facility] for follow up on and referred to [facility] for direct admission for management of acute kidney injury with hyperkalemia and metabolic acidosis. Chief Complaint: Weakness Principal diagnosis: Acute kidney injury with hyperkalemia and metabolic acidosis Interval history: No change. Pertinent ROS: No new symptoms. Objective - Vital Signs Vital signs: Vital Signs Temp Pulse Resp BP BP Pulse Ox 07/20/17 06:19 98.3 F 16 106/78 94 07/20/17 04:00 97.9 F 79 16 111/75 94 07/20/17 00:00 98.4 F 70 18 111/75 96 07/19/17 19:13 97.5 F 90 16 115/78 96 07/19/17 15:23 98.3 F 16 117/76 98 07/19/17 11:39 98.7 F 16 115/74 97 07/19/17 07:33 99.7 F H 16 112/76 97 Intake and Output 07/19/17 07/20/17 07/20/17 21:59 05:59 13:59 Intake Total 1010 / 1010 250 / 250 Output Total Balance 1009 / 1009 248 / 248 Intake: Oral 1010 / 1010 250 / 250 Output: Void Amount 0 / 0 # of times incontinent of urine Other: Meal Dinner Percent of Meal Consumed 25% Feeding Ability Independent # Voids 1 Weight 155 lb Intake & Output: Intake & Output 07/19/17 07/20/17 07/20/17 21:59 05:59 13:59 Intake Total 1010 / 1010 250 / 250 Output Total Balance 1009 / 1009 248 / 248 Weight 155 lb Intake: Oral 1010 / 1010 250 / 250 Output: Void Amount 0 / 0 # of times incontinent of urine / 1 2 / 2 Other: Meal Dinner Percent of Meal Consumed 25% Feeding Ability Independent # Voids 1 - General Appearance General appearance: appears started age EENT: mucous membranes moist Neck: supple Respiratory: clear Cardiology: no edema Gastrointestinal: no tenderness Integumentary: warm and dry Neurologic: no focal deficit Musculoskeletal: no cyanosis Psychiatric: mood/affect appropriate, cooperative - Lab 07/20/17 04:25 07/20/17 04:25 Most recent lab results Calcium 9.4 mg/dl (8.6-10.4) 07/20/17 04:25 Phosphorus 5.1 mg/dL (2.7-4.5) H 07/20/17 04:25 Magnesium 1.9 mg/dL (1.6-2.5) 07/20/17 04:25 Assessment and Plan (1) Acute kidney injury Associated with obstructive nephropathy with bilateral hydronephrosis. Progress: Serum creatinine 4.0-4.2 with eGFR 17-18, without significant change after stents. Outpatient follow up scheduled at [facility] on 07/22/17 after labs on 07/21/17, if discharged. Status: Acute Priority: High (2) Metabolic acidosis CO2 21 and Anion gap 18. Receiving Sodium Bicarbonate 650 mg PO TID Status: Resolved Priority: Medium (3) Hydronephrosis, bilateral Bilateral ureteral stents on 07/16/[address] Schmitt. Status: Acute Priority: High
[2017-07-20] MEDS: PANTOPRAZOLE 40 MG TABLET PO SCH (07:55)
[2017-07-20] MEDS: GABAPENTIN 100 MG CAPSULE PO SCH ×2 (07:56→12:17)
[2017-07-20] MEDS: OLANZapine 5 MG TABLET PO SCH (09:31)
[2017-07-20] MEDS: HEPARIN 5,000 UNIT/ML VIAL SQ SCH (09:32)
[2017-07-20] MEDS: risperiDONE 0.25 MG TABLET PO SCH (09:32)
[2017-07-20] MEDS: TAMSULOSIN 0.4 MG CAPSULE PO SCH (09:32)
[2017-07-20] MEDS: CITALOPRAM 20 MG TABLET PO SCH (09:32)
[2017-07-20] MEDS: NICOTINE 21 MG PATCH TOPICAL SCH (09:32)
[2017-07-20] MEDS: CIPROFLOXACIN 500 MG TABLET PO SCH (09:32)
[2017-07-20] MEDS: VITAMIN D3 1,000 UNIT TABLET PO SCH (09:32)
[2017-07-20] MEDS: SALMETEROL XINAFOATE 1 PUFF INHALER INH SCH (09:33)
[2017-07-20] MEDS: DOCUSATE SODIUM 100 MG CAPSULE PO SCH (09:33)
[2017-07-20] MEDS: SODIUM BICARBONATE 650 MG TABLET PO SCH (09:33)
== END 2017-07-20 12:35 | disposition other institution (70) | DRG 683 ==
LOC: ICU 11:28 → MEDSUR 07-15 18:00
PROVIDERS: ADMIT Internal Medicine; ATTEND Specialist

== ENCOUNTER 2017-07-21 15:11 | Observation (INO) ==
[2017-07-21] MEDS ORDERED: LIDOCAINE JEL 2% 1 TUBE 30GM TOPICAL ONE (16:19)
[2017-07-21 16:34] LABS: Basophils # (Auto) 0 K/mcL (0.0-0.3); Basophils % (Auto) 0.1 % (0.0-2.0); Eosinophils # (Auto) 0.4 K/mcL (0.0-0.7); Eosinophils % (Auto) 2.7 % (0.0-7.0); Granulocytes % (Auto) 78.9 % (38.0-78.0); Lymphocytes # (Auto) 1.5 K/mcL (1.5-4.8); Lymphocytes % (Auto) 10.8 % (15.5-49.0); Mean Cell Volume 84.1 fL (80.0-100.0); Mean Corpuscular HGB Conc 33.3 g/dL (31.0-36.0); Monocytes % (Auto) 7.5 % (1.0-12.0); Platelet Count 297 K/mcL (140-440); RBC 4.44 M/mcL (4.50-5.90); Red Cell Distribution Width 15.2 % (11.5-14.5)
[2017-07-21 16:39] LABS: ALT/SGPT 9 U/l (0-40); Albumin 4.2 gm/dL (3.2-5.2); Albumin/Globulin Ratio 1.2 (1.0-2.3); Alkaline Phosphatase 138 U/L (39-117); Blood Urea Nitrogen 68 mg/dl (6-20)
[2017-07-21 17:26] LABS: Appearance,Urine TURBID; Bacteria,Urine MANY /hpf (0); Bilirubin,Urine NEG (NEG); Color,Urine YELLOW; Glucose,Urine (UA) NEGATIVE (NEG); Leukocyte Esterase,Urine 500 /uL (NEG); Protein,Urine 100 mg/dL (NEG); Specific Gravity,Urine 1.011 (1.000-1.035); Urine Blood 0.2 mg/dL (<0.03); Urine Budding Yeast FEW /hpf (0); Urine RBC 69 /hpf (0-1); Urine Squamous Epithelial Cell 0 /hpf (0-4); Urine WBC > 182 /hpf (0-4); Urobilinogen,Urine NEG (NEG)
[2017-07-21] MEDS ORDERED: GABAPENTIN 100 MG CAPSULE PO ONE (17:55)
--- NOTE | 2017-07-21 18:03 | Emergency Department Note ---
Male Urogenital HPI - General Chief complaint: Urogenital-Male Stated complaint: nausea, vomitting, urinary retention Time Seen by Provider: 07/21/17 15:18 Source: other Mode of arrival: ambulatory - History of Present Illness HPI Narrative: 42-year-old male presents with his caregiver from his [place]. The patient is an extremely poor historian. The patient states he just does not feel well at all. He rarely answers questions and is fairly agitated. He does have a long mental health history and this is seems to be his baseline according to his caregivers. Caregivers are concerned because he has not urinated much at all in the last 12-24 hours. He is complaining of some pelvic pain, dysuria, and frequency and unable to void. He is also had fever and chills for the last 12 hours. Caregivers state it is hard to explain but he is just been going downhill the last 12-24 hours. Not like himself and is not feeling well. Positive chills but unknown fever. No nausea, vomiting, or diarrhea. Decreased appetite. Has felt hot. The caregiver reports that a couple years ago when he had stents placed he did the same thing. The patient did have stents placed in the ureters by Dr. Schmitt last week. He was doing fine up until the last 24 hours. He was just discharged from the hospital a few days ago. He does have a history of frequent urinary tract infections. He currently is on Cipro daily. Denies back pain. No abdominal pain. No cough or cold symptoms - Related Data Home Medications Medication Instructions Recorded Confirmed citalopram 40 mg tablet 40 mg PO QDAY 10/13/16 07/14/17 salmeterol 50 mcg/dose blister 1 inh INHALATION BID 10/13/16 07/14/17 powder for inhalation albuterol sulfate HFA 90 2 puff INHALATION BID g 10/14/16 07/14/17 mcg/actuation aerosol inhaler olanzapine 10 mg tablet See Label Instructions .ROUTE 10/14/16 07/14/17 .COMPLEX gabapentin 100 mg capsule 100 mg PO BID@08,1200 01/12/17 07/14/17 tamsulosin 0.4 mg capsule 0.4 mg PO QDAY 03/16/17 07/14/17 risperidone 0.5 mg tablet 0.5 mg PO BID tab 06/10/17 07/14/17 Gabapentin [Neurontin] 200 mg PO HS 07/14/17 07/14/17 Vitamin D3 1,000 unit PO DAILY 07/14/17 07/14/17 Previous Rx's Medication Instructions Recorded Ciprofloxacin HCl [Cipro] 500 mg PO DAILY #7 tab 07/19/17 LORazepam [Ativan] 1 mg PO BIDP PRN tablet 07/19/17 Sodium Bicarbonate 650 mg PO TID #90 tab 07/19/17 Allergies Allergy/AdvReac Type Severity Reaction Status Date / Time No Known Drug Allergies Allergy Verified 07/21/17 15:18 Review of Systems All systems ED: reviewed and negative except as stated. Past Medical History - Past Medical History [facility] Narrative: Medical History (Last Reviewed 07/14/17 @ 10:10 by Ellyn Houston RN) Acute kidney injury (Acute) Anemia in stage 3 chronic kidney disease (Chronic) Vitamin D deficiency (Chronic) Secondary hyperparathyroidism of renal origin (Chronic) Persistent proteinuria (Chronic) Hyperkalemia, diminished renal excretion (Resolved) Psychiatric illness (Chronic) Kidney disease (Chronic) Chronic obstructive lung disease (Chronic) Chronic kidney disease, stage 3 (Chronic) Chronic anxiety (Chronic) Depressive disorder (Chronic) Bipolar disorder (Chronic) Congenital stricture of urethra (Chronic) Past Surgical History (Last Reviewed 07/14/17 @ 10:10 by Ellyn Houston RN) No pertinent past surgical history (Chronic) Surgical history ED: Reports: ureteral stent - Social History smoking status: Current every day smoker Alcohol use: Reports: Unknown Drug use: Reports: unknown Physical Exam Limitations: no limitations General appearance: alert, in no apparent distress Head: atraumatic, normocephalic, normal inspection Eye: Present: normal appearance. Absent: conjunctival injection ENT: normal exam, normal oropharynx, mucous membranes moist, TM's normal bilaterally, normal external ear exam Neck: Present: normal inspection, trachea midline. Absent: tenderness, lymphadenopathy Chest: Present: normal inspection, symmetric chest wall rise Respiratory: Present: normal lung sounds bilaterally. Absent: respiratory distress, wheezes, accessory muscle use Cardiovascular: Present: regular rate, normal heart sounds Extremities: Present: normal inspection. Absent: pedal edema Neurological: Present: alert, oriented X3 Psychiatric: Present: agitated (Agitated and irritable) Skin: Present: warm, dry, intact, normal color Course Course Narrative: I did talk to Dr. Morales, the hospitalist on-call who agrees to see the patient and admit if necessary. Unfortunately Dr. Schmitt was not on-call and not available today. Vital Signs Temperature 97.2 F 07/21/17 15:12 Pulse Rate 101 H 07/21/17 15:12 Respiratory Rate 20 07/21/17 15:12 Blood Pressure 107/66 07/21/17 15:12 Pulse Oximetry (%) 100 07/21/17 15:12 Temperature 97.2 F 07/21/17 15:12 Pulse Rate 77 07/21/17 17:32 Respiratory Rate 20 07/21/17 15:12 Blood Pressure 114/76 07/21/17 17:32 Pulse Oximetry (%) 100 07/21/17 17:32 Urogenital-Male - Lab Data Lab results reviewed: Yes I reviewed the patient's lab results. Result diagrams: 07/21/17 15:52 07/21/17 15:29 Lab Results 07/21/17 07/21/17 07/21/17 Range/Units 15:29 15:34 15:52 WBC 13.7 H (4.5-11.0) K/mcL RBC 4.44 L (4.50-5.90) M/mcL Hgb 12.4 L (13.5-16.5) g/dL Hct 37.3 L (41.0-55.0) % MCV 84.1 (80.0-100.0) fL MCH 28.0 (26.0-34.0) pg MCHC 33.3 (31.0-36.0) g/dL RDW 15.2 H (11.5-14.5) % Plt Count 297 (140-440) K/mcL MPV 9.9 (7.4-10.4) fL Gran % 78.9 H (38.0-78.0) % Lymph % (Auto) 10.8 L (15.5-49.0) % [place] % (Auto) 7.5 (1.0-12.0) % Eos % (Auto) 2.7 (0.0-7.0) % Baso % (Auto) 0.1 (0.0-2.0) % Gran # 10.8 H (1.8-8.0) K/mcL Lymph # (Auto) 1.5 (1.5-4.8) K/mcL [place] # (Auto) 1.0 H (0.1-0.9) K/mcL Eos # (Auto) 0.4 (0.0-0.7) K/mcL Baso # (Auto) 0 (0.0-0.3) K/mcL VBG Lactic Acid (0.5-2.2) mmol/L Sodium 142 (133-145) mmol/L Potassium 4.3 (3.3-5.1) mmol/L Chloride 103 (96-108) mmol/L Carbon Dioxide 23 (22-30) mmol/L Anion Gap 16.0 (8-16) BUN 68 H (6-20) mg/dl Creatinine 4.2 H (0.7-1.2) mg/dl GFR Calculation 17 Glucose 94 (70-105) mg/dL Calcium 9.1 (8.6-10.4) mg/dl Total Bilirubin 0.2 (0.0-1.0) mg/dL AST 16 (0-37) U/l ALT 9 (0-40) U/l Alkaline Phosphatase 138 H (39-117) U/L Total Protein 7.8 (5.9-8.4) gm/dL Albumin 4.2 (3.2-5.2) gm/dL Globulin 3.6 (2.2-3.7) gm/dL Albumin/Globulin Ratio 1.2 (1.0-2.3) Urine Color Yellow Urine Appearance Turbid Urine pH 6.0 (5.0-9.0) Ur Specific [place] 1.011 (1.000-1.035) Urine Protein 100 A (NEG) mg/dL Urine Glucose (UA) Negative (NEG) mg/dL Urine Ketones Neg (NEG) mg/dL Urine Occult Blood 0.2 A (<0.03) mg/dL Urine Nitrate Neg (NEG) Urine Bilirubin Neg (NEG) mg/dL Urine Urobilinogen Neg (NEG) mg/dL Ur Leukocyte Esterase 500 A (NEG) /uL Urine RBC 69 H (0-1) /hpf Urine WBC > 182 H (0-4) /hpf Ur Squamous Epith Cells 0 (0-4) /hpf Urine Bacteria Many A (0) /hpf Urine Yeast (Budding) Few A (0) /hpf 03/27/18 Range/Units 15:52 WBC (4.5-11.0) K/mcL RBC (4.50-5.90) M/mcL Hgb (13.5-16.5) g/dL Hct (41.0-55.0) % MCV (80.0-100.0) fL MCH (26.0-34.0) pg MCHC (31.0-36.0) g/dL RDW (11.5-14.5) % Plt Count (140-440) K/mcL MPV (7.4-10.4) fL Gran % (38.0-78.0) % Lymph % (Auto) (15.5-49.0) % [place] % (Auto) (1.0-12.0) % Eos % (Auto) (0.0-7.0) % Baso % (Auto) (0.0-2.0) % Gran # (1.8-8.0) K/mcL Lymph # (Auto) (1.5-4.8) K/mcL [place] # (Auto) (0.1-0.9) K/mcL Eos # (Auto) (0.0-0.7) K/mcL Baso # (Auto) (0.0-0.3) K/mcL VBG Lactic Acid 1.1 (0.5-2.2) mmol/L Sodium (133-145) mmol/L Potassium (3.3-5.1) mmol/L Chloride (96-108) mmol/L Carbon Dioxide (22-30) mmol/L Anion Gap (8-16) BUN (6-20) mg/dl Creatinine (0.7-1.2) mg/dl GFR Calculation Glucose (70-105) mg/dL Calcium (8.6-10.4) mg/dl Total Bilirubin (0.0-1.0) mg/dL AST (0-37) U/l ALT (0-40) U/l Alkaline Phosphatase (39-117) U/L Total Protein (5.9-8.4) gm/dL Albumin (3.2-5.2) gm/dL Globulin (2.2-3.7) gm/dL Albumin/Globulin Ratio (1.0-2.3) Urine Color Urine Appearance Urine pH (5.0-9.0) Ur Specific [place] (1.000-1.035) Urine Protein (NEG) mg/dL Urine Glucose (UA) (NEG) mg/dL Urine Ketones (NEG) mg/dL Urine Occult Blood (<0.03) mg/dL Urine Nitrate (NEG) Urine Bilirubin (NEG) mg/dL Urine Urobilinogen (NEG) mg/dL Ur Leukocyte Esterase (NEG) /uL Urine RBC (0-1) /hpf Urine WBC (0-4) /hpf Ur Squamous Epith Cells (0-4) /hpf Urine Bacteria (0) /hpf Urine Yeast (Budding) (0) /hpf - Radiology Data Radiology results reviewed: Yes I reviewed the patient's radiology results. Disposition Pt seen by FU[employer] CELL ENGINEER/PA only: Yes Clinical Impression: Urinary tract infection, Urinary retention Disposition: Xfer As Inpt ([facility]) Condition: Fair Referrals: Patrica Elizabeth ARNP [Primary Care Provider] - Cornelio Schmitt MD [Physician] - Time of Disposition: 18:05
--- NOTE | 2017-07-21 18:45 | Ultrasound Report ---
CLINICAL INFORMATION: Flank pain COMPARISON: Renal ultrasound 01/08/2017 FINDINGS: Severe persistent bilateral hydronephrosis appreciated. Both kidneys are mildly enlarged - 14 x 7 cm each - no focal renal lesions. The proximal aspect of a ureteral stent is seen in each kidney. Urinary bladder is moderately distended (281 cc). There is diffuse wall thickening consistent with chronic bladder outlet narrowing IMPRESSION: Severe bilateral hydronephrosis with bilateral ureteral stents in place. Despite the hydronephrosis, the stents appear to be functional since there is a large amount of urine distended urinary bladder. The reason for persistent bilateral hydronephrosis despite functioning stent is unknown - it may be related to renal parenchymal atrophy Interpreted and Authenticated by: Hans Salvador 07/21/17
[2017-07-21] MEDS ORDERED: LORazepam 2 MG/ML VIAL IV ONE (19:25)
[2017-07-21] MEDS ORDERED: oxyCODONE HCL 5 MG TABLET PO PRN (20:47)
[2017-07-21] MEDS ORDERED: ACETAMINOPHEN 325 MG TABLET PO PRN (20:47)
[2017-07-21] MEDS ORDERED: cefTRIAXone 1 GM in DEXTROSE 5% IN WATER 50 ML IV SCH (20:47)
[2017-07-21] MEDS ORDERED: GABAPENTIN 100 MG CAPSULE PO SCH (21:00)
[2017-07-21] MEDS ORDERED: OLANZapine 5 MG TABLET PO SCH (21:00)
[2017-07-21] MEDS ORDERED: LORazepam 1 MG TABLET PO PRN (21:07)
[2017-07-21] MEDS ORDERED: OLANZAPINE SCH (21:15)
[2017-07-21] MEDS: cefTRIAXone 1 GM VIAL IV SCH (22:12)
[2017-07-21] MEDS: SODIUM BICARBONATE 650 MG TABLET PO SCH (22:13)
[2017-07-21] MEDS: SALMETEROL XINAFOATE 1 PUFF INHALER INH SCH (22:13)
[2017-07-21] MEDS: HEPARIN 5,000 UNIT/ML VIAL SQ SCH (22:13)
[2017-07-21] MEDS: risperiDONE 0.25 MG TABLET PO SCH (22:13)
--- NOTE | 2017-07-21 22:20 | Internal Med History&Physical ---
Medical - H&P: HPI Patient information: Note initiated : 07/21/17 at 10:17 pm Service Date, if different from initiated Date: [] Patient: Constantine Rivera a 42 y/o M admitted on 07/21/17 for nausea, vomiting, urinary retention. Chief Complaint: [inability to void] History of present illness: Mr. 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 Patient has bipolar disorder and other mental health problems who resides in a long-term. He doesn't usually interact/communicate with other people. Patient was hospitalized 07/14 - 07/19 for worsening kidney failure, metabolic acidosis and hyperkalemia revealed during a routine nephrology visit. He has had bilateral stents placed in January 2017, but those were removed 05/29/17 as they could be the cause of recurrent UTIs. Cytourethroscopy and bilateral stent placement was done by dr Schmitt on 07/16. He was noted then that the post-void residual was 268 ml. Urethra appeared normal, bladder neck s/p TUIP . Patient was started and discharged on Ciprofloxacin for presumed UTI. However, Urine C/S was negative. In ED patient was afebrile. Figueroa cath was inserted which drained about 250 ml. US kidneys, done prior to cath insertion showed severe bilateral hydronephrosis with bilateral ureteral stents in place and large amount of urine in distended bladder. REVIEW OF SYSTEMS: A ten-point review of system was performed and negative except the ones discussed above. Medical - H&P: PMH Medical history: 1. Bilateral hydronephrosis, due to hereditary urethra stenosis 2. Benign prostate hypertrophy, S/P TURP 3. Chronic kidney disease. 4. Secondary hyperparathyroidism. 5. COPD. 6. Depressive disorder. 7. Bipolar disorder. 8. Nicotine dependence. Surgical history: Past Surgical History Bilateral ureteral stent placement January 2017. Removed 05/29/17 Bilateral stent placement 07/16/17 Social history: Lives in long-term Functional capacity: independent ambulation Smoking status: Current every day smoker Have you smoked in the last 12 months: Yes (1.5 ppd) Drug use: none Alcohol use: none Medical - H&P: Meds Home Medications Medication Instructions Recorded Confirmed Type citalopram 40 mg tablet 40 mg PO QDAY 10/13/16 07/21/17 History salmeterol 50 mcg/dose blister 1 inh INHALATION BID 10/13/16 07/21/17 History powder for inhalation albuterol sulfate HFA 90 2 puff INHALATION BID g 10/14/16 07/21/17 History mcg/actuation aerosol inhaler olanzapine 10 mg tablet See Label Instructions .ROUTE 10/14/16 07/21/17 History .COMPLEX gabapentin 100 mg capsule 100 mg PO BID@08,1200 01/12/17 07/21/17 History tamsulosin 0.4 mg capsule 0.4 mg PO QDAY 03/16/17 07/21/17 History risperidone 0.5 mg tablet 0.5 mg PO BID tab 06/10/17 07/21/17 History Gabapentin [Neurontin] 200 mg PO HS 07/14/17 07/21/17 History Vitamin D3 1,000 unit PO DAILY 07/14/17 07/21/17 History Ciprofloxacin HCl [Cipro] 500 mg PO DAILY #7 tab 07/19/17 07/21/17 Rx LORazepam [Ativan] 1 mg PO BIDP PRN tablet 07/19/17 07/21/17 Rx Sodium Bicarbonate 650 mg PO TID #90 tab 07/19/17 07/21/17 Rx Allergies Allergy/AdvReac Type Severity Reaction Status Date / Time No Known Drug Allergies Allergy Verified 07/21/17 15:18 Medical - H&P: Exam - Constitutional Vitals: Temp Pulse Resp BP Pulse Ox 98.1 F 59 L 14 121/74 96 07/21/17 20:42 07/21/17 20:42 07/21/17 20:42 07/21/17 20:42 07/21/17 20:42 General appearance: mild distress - Head Head exam: Present: normal inspection - Respiratory Respiratory exam: Present: normal respiratory exam - Cardiovascular Cardiovascular exam: Present: normal rate and rhythm - GI/Abdominal GI/Abdominal exam: Present: normal bowel sounds, soft - Rectal Rectal exam: Present: deferred Medical - H&P: Reslt - Labs CBC & Chem 7: 07/21/17 15:52 07/21/17 15:29 Labs: Short CBC 03/27/18 Range/Units 15:52 WBC 13.7 H (4.5-11.0) K/mcL Hgb 12.4 L (13.5-16.5) g/dL Hct 37.3 L (41.0-55.0) % Plt Count 297 (140-440) K/mcL BMP 07/21/17 15:29 Sodium 142 Potassium 4.3 Chloride 103 Carbon Dioxide 23 BUN 68 H Creatinine 4.2 H Glucose 94 Calcium 9.1 Liver Function 07/21/17 Range/Units 15:29 Total Bilirubin 0.2 (0.0-1.0) mg/dL AST 16 (0-37) U/l ALT 9 (0-40) U/l Alkaline Phosphatase 138 H (39-117) U/L Albumin 4.2 (3.2-5.2) gm/dL Urine 07/21/17 Range/Units 15:34 Urine Color Yellow Urine Appearance Turbid Urine pH 6.0 (5.0-9.0) Ur Specific [place] 1.011 (1.000-1.035) Urine Protein 100 A (NEG) mg/dL Urine Glucose (UA) Negative (NEG) mg/dL - Imaging and Cardiology US kidneys Additional comments: Severe bilateral hydronephrosis with bilateral ureteral stents in place. Despite the hydronephrosis, the stents appear to be functional since there is a large amount of urine distended urinary bladder. The reason for persistent bilateral hydronephrosis despite functioning stent is unknown - it may be related to renal parenchymal atrophy Medical - H&P: A/P (1) Urinary retention Current visit: Yes Status: Acute Indwelling figueroa cath inserted by ED staff. Drained approx 250 ml urine. Continue Flomax (2) Urinary tract infection Current visit: Yes Status: Acute Has been on Cipro for 2-3 weeks. Urine C/S (x3) on record have been all negative. Will start empirically on ceftriaxone (3) Chronic kidney disease, stage 3 Current visit: No Status: Chronic Slightly increased Bun/Cr most likely due to poor intake and emesis x 24 hours. Will start IVF for gentle hydration (4) Hydronephrosis, bilateral Current visit: No Status: Chronic (5) Secondary hyperparathyroidism of renal origin Current visit: No Status: Chronic Continue current regimen (6) Vitamin D deficiency Current visit: No Status: Chronic (7) Psychiatric illness Current visit: No Status: Chronic Known with bipolar disorder, flat affect. Continue current regimen - Narrative A/P Narrative: See above. DVT prophylaxis: heparin Code status: FULL
[2017-07-21] MEDS: 0.9 % SODIUM CHLORIDE 10 ML SYRINGE IV SCH (22:22)
[2017-07-21] MEDS: 0.9 % SODIUM CHLORIDE 1,000 ML IV SCH (23:11)
[2017-07-22] MEDS: 0.9 % SODIUM CHLORIDE 10 ML SYRINGE IV SCH ×2 (05:28→13:04)
[2017-07-22 05:34] LABS: Mean Cell Volume 84.5 fL (80.0-100.0); Mean Corpuscular HGB Conc 33.1 g/dL (31.0-36.0); Mean Corpuscular Hemoglobin 27.9 pg (26.0-34.0); Platelet Count 270 K/mcL (140-440); RBC 3.88 M/mcL (4.50-5.90); Red Cell Distribution Width 14.9 % (11.5-14.5)
[2017-07-22 05:50] LABS: ALT/SGPT 7 U/l (0-40); Albumin 3.6 gm/dL (3.2-5.2); Albumin/Globulin Ratio 1.2 (1.0-2.3); Alkaline Phosphatase 116 U/L (39-117); Bilirubin,Direct < 0.2 mg/dL (0.0-0.3); Blood Urea Nitrogen 68 mg/dl (6-20); Gamma Glutamyl Transpeptidase 14 U/L (8-61); Uric Acid 11.6 mg/dL (2.5-8.0)
[2017-07-22 06:26] LABS: Anisocytosis 1+ (NONE SEEN); Band Neutrophils % 1 % (0-10); Eosinophils % (Manual) 2 % (0-7); Lymphocytes % 13 % (15-49); Monocytes % (Manual) 10 % (1-12); Platelet Estimate NORMAL (NORMAL); RBC Morphology ABNORM (NORMAL); Segmented Neutrophils % 74 % (38-78)
[2017-07-22] MEDS: 0.9 % SODIUM CHLORIDE 1,000 ML IV SCH (07:23)
[2017-07-22] MEDS ORDERED: OLANZapine 5 MG TABLET PO SCH (09:00)
[2017-07-22] MEDS ORDERED: VITAMIN D3 1,000 UNIT TABLET PO SCH (09:00)
[2017-07-22] MEDS ORDERED: TAMSULOSIN 0.4 MG CAPSULE PO SCH (09:00)
[2017-07-22] MEDS ORDERED: GABAPENTIN 100 MG CAPSULE PO SCH (09:00)
[2017-07-22] MEDS ORDERED: CITALOPRAM 20 MG TABLET PO SCH (09:00)
[2017-07-22] MEDS: risperiDONE 0.25 MG TABLET PO SCH (09:22)
[2017-07-22] MEDS: SODIUM BICARBONATE 650 MG TABLET PO SCH ×2 (09:23→14:15)
[2017-07-22] MEDS: HEPARIN 5,000 UNIT/ML VIAL SQ SCH (09:24)
[2017-07-22] MEDS: GABAPENTIN 100 MG CAPSULE PO SCH ×2 (09:24→12:27)
[2017-07-22] MEDS: SALMETEROL XINAFOATE 1 PUFF INHALER INH SCH (09:25)
--- NOTE | 2017-07-22 10:40 | Discharge Summary ---
Medical - DS: Prov Patient information: Note initiated : 07/22/17 at 10:38 am Service Date, if different from initiated Date: [] Patient: Constantine Rivera 42 y/o M admitted on 07/21/17 for nausea, vomiting, urinary retention. Date of admission: 07/21/17 20:42 Discharge date: 07/22/17 Primary care physician: Patrica Elizabeth Medical - DS: Meds - Discharge Medications Prescriptions: Fosfomycin Tromethamine [Monurol] 3 gm PO Q72 #3 packet Active and Home Medications: Home Medications citalopram 40 mg tablet 40 mg PO QDAY 10/13/16 [History Confirmed 07/21/17 Last Taken Unknown] salmeterol 50 mcg/dose blister powder for inhalation 1 inh INHALATION BID [History Confirmed 07/21/17 Last Taken Unknown] albuterol sulfate HFA 90 mcg/actuation aerosol inhaler 2 puff INHALATION BID g 10/14/16 [History Confirmed 07/21/17 Last Taken Unknown] olanzapine 10 mg tablet See Label Instructions .ROUTE .COMPLEX 10/14/16 [ History Confirmed 07/21/17 Last Taken Unknown] gabapentin 100 mg capsule 100 mg PO BID@08,1200 01/12/17 [History Confirmed Last Taken Unknown] tamsulosin 0.4 mg capsule 0.4 mg PO QDAY 03/16/17 [History Confirmed 07/21/17 Last Taken Unknown] risperidone 0.5 mg tablet 0.5 mg PO BID tab 06/10/17 [History Confirmed Last Taken Unknown] Gabapentin [Neurontin] 200 mg PO HS 07/14/17 [History Confirmed 07/21/17 Last Taken Unknown] Vitamin D3 1,000 unit PO DAILY 07/14/17 [History Confirmed 07/21/17 Last Taken Unknown] Ciprofloxacin HCl [Cipro] 500 mg PO DAILY #7 tab 07/19/17 [Rx Confirmed Last Taken Unknown] LORazepam [Ativan] 1 mg PO BIDP PRN tablet 07/19/17 [Rx Confirmed 07/21/17 Last Taken Unknown] Sodium Bicarbonate 650 mg PO TID #90 tab 07/19/17 [Rx Confirmed 07/21/17 Last Taken Unknown] Medical - DS: Hosp Hospital course: Mr. 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 Patient has bipolar disorder and other mental health problems who resides in a fpc. He doesn't usually interact/communicate with other people. Patient was hospitalized 07/14 - 07/19 for worsening kidney failure, metabolic acidosis and hyperkalemia revealed during a routine nephrology visit. He has had bilateral stents placed in January 2017, but those were removed 05/29/17 as they could be the cause of recurrent UTIs. Cytourethroscopy and bilateral stent placement was done by dr Schmitt on 07/16. He was noted then that the post-void residual was 268 ml. Urethra appeared normal, bladder neck s/p TUIP . Patient was started and discharged on Ciprofloxacin for presumed UTI. However, Urine C/S was negative. In ED patient was afebrile. Crane cath was inserted which drained about 250 ml. US kidneys, done prior to cath insertion showed severe bilateral hydronephrosis with bilateral ureteral stents in place and large amount of urine in distended bladder. REVIEW OF SYSTEMS: A ten-point review of system was performed and negative except the ones discussed above. Hospital Course: Patient was admitted with nausea, vomiting, urinary retention, acute on chronic renal failure and possible UTI. After insertion of the crane catheter and drainage of about 300 ml, patient felt much better. He was given IVF for mild dehydration and ondansetron for nausea. Ceftriaxone was started for possible UTI. Previous Urine cultures have been negative and patient has been on Cipro for 2-3 weeks. Patient has had no fever overnight and this morning was feeling well. He expressed the wish to be discharged home. The case was discussed with dr Schmitt and dr Salcido, urologist resp core java software engineer. They concur with patient being discharged home and followed as outpatient. No changes in his home medications, other than switch of antibiotics : discontinue Cipro. Start Fosfomycin every 3 days x 3 dosages. Discharge diagnosis: Urinary retention, acute on chronic renal failure, UTI Secondary discharge diagnosis: Bilateral Hydronephrosis S/P bilateral ureteral stent placement Bipolar disorder Nicotine use disorder Reason for admission: urinary retention, pelvic pain, nausea and vomiting Pertinent studies/significant findings: Renal US: Severe bilateral hydronephrosis with bilateral ureteral stents in place. Despite the hydronephrosis, the stents appear to be functional since there is a large amount of urine distended urinary bladder. The reason for persistent bilateral hydronephrosis despite functioning stent is unknown - it may be related to renal parenchymal atrophy Time spent discussing smoking cessation with patient: 3 to 10 minutes - Time Spent with Patient Total time spent providing and/or coordinating discharge services: Greater than 30 minutes Medical - DS: Exam - Constitutional Vitals: Vital Signs Temp Pulse Pulse Resp BP BP Pulse Ox 07/22/17 08:00 70 07/22/17 06:55 98.8 F 70 16 110/67 94 07/22/17 04:59 98.0 F 88 16 108/68 94 07/21/17 23:12 98.0 F 84 16 100/62 94 07/21/17 20:42 98.1 F 59 L 14 121/74 96 07/21/17 20:35 80 16 121/76 99 07/21/17 19:52 81 100 07/21/17 19:31 78 111/76 98 07/21/17 19:01 83 111/76 100 07/21/17 18:31 78 104/81 97 07/21/17 18:28 78 106/75 93 07/21/17 17:32 77 114/76 100 07/21/17 17:01 77 91/64 99 07/21/17 16:31 79 93/66 99 07/21/17 16:01 86 109/73 100 07/21/17 15:33 92 H 101/75 100 07/21/17 15:12 97.2 F 101 H 20 107/66 100 Intake and Output 07/21/17 07/22/17 07/22/17 21:59 05:59 13:59 Intake Total 450 / 450 2360 / 2360 Output Total 475 / 475 Balance -25 / -25 2360 / 2360 Intake: IV 1999 Sodium Chloride 0.9% 1,000 ml @ 1999 125 mls/hr IV .Q8H [facility] Rx#: [id number] Oral 450 / 450 360 / 360 Output: Urine Catheter Amount 475 / 475 Other: Meal Nourishment/Supplement Breakfast Percent of Meal Consumed 100% 100% Feeding Ability Independent Weight 148 lb General appearance: no acute distress - Respiratory Respiratory exam: Present: normal respiratory exam - Cardiovascular Cardiovascular exam: Present: normal rate and rhythm - GI/Abdominal GI/Abdominal exam: Present: normal bowel sounds, soft - exam: Present: normal inspection (crane catheter in place) Medical - DS: Data Labs on day of discharge: Labs from last 24 hours 07/22/17 07/22/17 07/21/17 04:06 04:06 15:52 WBC 10.8 RBC 3.88 L Hgb 10.9 L Hct 32.8 L MCV 84.5 MCH 27.9 MCHC 33.1 RDW 14.9 H Plt Count 270 MPV 10.2 Gran % Lymph % (Auto) [place] % (Auto) Eos % (Auto) Baso % (Auto) Gran # Lymph # (Auto) [place] # (Auto) Eos # (Auto) Baso # (Auto) Total Counted 200 Seg Neutrophils % 74 Band Neutrophils % 1 Lymphocytes % 13 L Monocytes % (Manual) 10 Eosinophils % (Manual) 2 Platelet Estimate Normal RBC Morphology Abnorm A Anisocytosis 1+ A RBC Fragments Occ A VBG Lactic Acid 1.1 Sodium 142 Potassium 3.9 Chloride 107 Carbon Dioxide 22 Anion Gap 13.0 BUN 68 H Creatinine 3.9 H GFR Calculation 18 Glucose 92 Uric Acid 11.6 H Calcium 8.5 L Phosphorus 5.2 H Magnesium 2.0 Total Bilirubin < 0.2 Direct Bilirubin < 0.2 GGT 14 AST 12 ALT 7 Alkaline Phosphatase 116 Lactate Dehydrogenase 117 Total Protein 6.7 Albumin 3.6 Globulin 3.1 Albumin/Globulin Ratio 1.2 Triglycerides 146 Urine Color Urine Appearance Urine pH Ur Specific [place] Urine Protein Urine Glucose (UA) Urine Ketones Urine Occult Blood Urine Nitrate Urine Bilirubin Urine Urobilinogen Ur Leukocyte Esterase Urine RBC Urine WBC Ur Squamous Epith Cells Urine Bacteria Urine Yeast (Budding) 07/21/17 07/21/17 07/21/17 15:52 15:34 15:29 WBC 13.7 H RBC 4.44 L Hgb 12.4 L Hct 37.3 L MCV 84.1 MCH 28.0 MCHC 33.3 RDW 15.2 H Plt Count 297 MPV 9.9 Gran % 78.9 H Lymph % (Auto) 10.[address] [place] % (Auto) 7.5 Eos % (Auto) 2.7 Baso % (Auto) 0.1 Gran # 10.8 H Lymph # (Auto) 1.5 [place] # (Auto) 1.0 H Eos # (Auto) 0.4 Baso # (Auto) 0 Total Counted Seg Neutrophils % Band Neutrophils % Lymphocytes % Monocytes % (Manual) Eosinophils % (Manual) Platelet Estimate RBC Morphology Anisocytosis RBC Fragments VBG Lactic Acid Sodium 142 Potassium 4.3 Chloride 103 Carbon Dioxide 23 Anion Gap 16.0 BUN 68 H Creatinine 4.2 H GFR Calculation 17 Glucose 94 Uric Acid Calcium 9.1 Phosphorus Magnesium Total Bilirubin 0.2 Direct Bilirubin GGT AST 16 ALT 9 Alkaline Phosphatase 138 H Lactate Dehydrogenase Total Protein 7.8 Albumin 4.2 Globulin 3.6 Albumin/Globulin Ratio 1.2 Triglycerides Urine Color Yellow Urine Appearance Turbid Urine pH 6.0 Ur Specific [place] 1.011 Urine Protein 100 A Urine Glucose (UA) Negative Urine Ketones Neg Urine Occult Blood 0.2 A Urine Nitrate Neg Urine Bilirubin Neg Urine Urobilinogen Neg Ur Leukocyte Esterase 500 A Urine RBC 69 H Urine WBC > 182 H Ur Squamous Epith Cells 0 Urine Bacteria Many A Urine Yeast (Budding) Few A Preliminary micro results at discharge 07/21/17 15:34 Urine Culture - Preliminary Urine - Clean Void [facility] - DS: A/P - Patient/Caregiver Discharge Instructions Activity: as per physical therapy, increase activity as tolerated Diet: Regular Diet - Problem Maintenance (1) Urinary retention Status: Acute Comment: PLEASE, KEEP INDWELLING CRANE CATHETER IN. IT WAS INSERTED 07/21. FU APPOINTMENT WITH DR STANLEY IN 1 WEEK (2) Urinary tract infection Status: Acute Comment: Urine culture: pending. Discontinue Cipro. Start Fosfomycin. Qualifiers: Hematuria presence: with hematuria (3) Chronic kidney disease, stage 3 Status: Chronic (4) Hydronephrosis, bilateral Status: Chronic (5) Secondary hyperparathyroidism of renal origin Status: Chronic (6) Vitamin D deficiency Status: Chronic (7) Psychiatric illness Status: Chronic - Follow up Plan Follow up with: Patrica Elizabeth ARNP [Primary Care Provider] - Cornelio Schmitt MD [Physician] - 07/31/17 8:30 am Disposition: Xfer Other Prognosis: Fair Rehab Potential: Fair Overall status at discharge: patient is progressing back to baseline
[2017-07-22] MEDS: cefTRIAXone 1 GM VIAL IV SCH (11:27)
[2017-07-22] MEDS ORDERED: GABAPENTIN 100 MG CAPSULE PO ONE (17:49)
== END 2017-07-22 14:20 | disposition other institution (70) ==
LOC: ED 15:11 → MEDSUR 15:11
PROVIDERS: ADMIT Specialist; ATTEND Specialist